=== PATIENT | female | born 1940 | race Caucasian/White ===

== ENCOUNTER 2021-10-05 11:25 | Outpatient (CLI) | payer MEDICARE, OTHER, SELFPAY ==
[2021-10-05 17:53] LABS: Cholesterol* 147 mg/dL (90-199)
[2021-10-05 17:54] LABS: HDL Cholesterol* 25 mg/dL (>=50); LDL Cholesterol Calculated 81 mg/dL (<100); Triglycerides* 205 mg/dL (40-149)
== END 2021-10-05 11:26 | disposition home or self-care (01) ==
LOC: LONREF 11:27
PROVIDERS: PCP Family Medicine; Visit Provider Family Medicine
DX: E78.5 Hyperlipidemia, unspecified (principal); E11.9 Type 2 diabetes mellitus without complications
CPT/HCPCS: 80061

== ENCOUNTER 2022-01-18 14:55 | Outpatient (CLI) | payer MEDICARE, OTHER, SELFPAY ==
[2022-01-18 19:28] LABS: C.Difficile Negative (Negative); CDIFFEPI 027 PRESUMPTIVE NEGATIVE (Negative)
== END 2022-01-18 14:56 | disposition home or self-care (01) ==
LOC: LONREF 14:55
PROVIDERS: PCP Family Medicine; Visit Provider Family Medicine
DX: R19.7 Diarrhea, unspecified (principal)
CPT/HCPCS: 87045; 87046; 87427; 87493

== ENCOUNTER 2022-03-31 13:25 | Outpatient (CLI) | payer MEDICARE, OTHER, SELFPAY ==
--- NOTE | 2022-03-31 14:50 | W.ANESCHARGE ---
Anesthesia Charges Start Date/Time Anesthesia Start Date: 03/31/22 Anesthesia Start Time: 14:15 Stop Date/Time Anesthesia Stop Date: 03/31/22 Anesthesia Stop Time: 14:43 Summary Emergency: No Extremes of Age: Over 70-CPT 56039
== END 2022-03-31 13:26 | disposition home or self-care (01) ==
LOC: OP CLINIC 13:28
PROVIDERS: PCP Family Medicine; Visit Provider Internal Medicine
DX: Z12.11 Encounter for screening for malignant neoplasm of colon (principal); K63.5 Polyp of colon; K57.30 Diverticulosis of large intestine without perforation or abscess without bleeding; Z80.0 Family history of malignant neoplasm of digestive organs; Z86.010 Personal history of colon polyps
CPT/HCPCS: 00811; 45380; 88305; 99100; J2405

== ENCOUNTER 2022-05-16 15:09 | Outpatient (CLI) | payer MEDICARE, OTHER, SELFPAY ==
[2022-05-16 18:08] LABS: Chloride* 106 mmol/L (96-114); Sodium* 141 mmol/L (135-149)
[2022-05-16 18:11] LABS: Carbon Dioxide* 30 mmol/L (20-32); Creatinine* 0.7 mg/dL (0.5-1.5); Estimated Glomerular Filt Rate 86 ml/min
[2022-05-16 18:12] LABS: Blood Urea Nitrogen* 20 mg/dL (7-30); Calcium* 9.8 mg/dL (8.4-10.6); Glucose* 124 mg/dL (60-115)
== END 2022-05-16 15:10 | disposition home or self-care (01) ==
LOC: LONREF 15:09
PROVIDERS: PCP Family Medicine; Visit Provider Family Medicine
DX: Z01.818 Encounter for other preprocedural examination (principal)
CPT/HCPCS: 80048

== ENCOUNTER 2022-09-13 14:55 | Outpatient (CLI) | payer MEDICARE, OTHER, SELFPAY | END 2022-09-13 14:56 | disposition home or self-care (01) | LOC: LONREF 14:57 | PROVIDERS: PCP Family Medicine; Visit Provider Family Medicine | DX: Z01.818 Encounter for other preprocedural examination (principal) | CPT/HCPCS: 80048 ==

== ENCOUNTER 2022-12-13 11:28 | Outpatient (CLI) | payer MEDICARE, OTHER, SELFPAY | END 2022-12-13 11:29 | disposition home or self-care (01) | LOC: LONREF 11:31 | PROVIDERS: PCP Family Medicine; Visit Provider Family Medicine | DX: E78.5 Hyperlipidemia, unspecified (principal); I10 Essential (primary) hypertension; E11.9 Type 2 diabetes mellitus without complications | CPT/HCPCS: 80061 ==

== ENCOUNTER 2022-12-20 13:40 | Outpatient (CLI) | payer MEDICARE, OTHER, SELFPAY ==
--- NOTE | 2022-12-20 14:00 | CRLHL7_ITS ---
For Patients: As a result of the Century Cures Act, medical imaging exams and procedure reports are released immediately into your electronic medical record. You may view this report before your referring provider. If you have questions, please contact your health care provider. CLINICAL HISTORY: Multinodular goiter. Comparison 08/18/2020 TECHNIQUE: Hay-scale and color Doppler images were acquired of the thyroid gland. FINDINGS: The right lobe measures 5.2 by 1.6 x 2.1 and the left lobe measures 4.8 x 1.6 x 1.7 in size. Benign spongiform nodules. No suspicious nodules are seen. IMPRESSION: Benign spongiform nodules without suspicious nodules visualized. Dictated by Tori Lynch MD @ 12/23/2022 11:06:07 AM (Electronically Signed)
== END 2022-12-20 13:41 | disposition home or self-care (01) ==
LOC: US 13:41
PROVIDERS: PCP Family Medicine; Visit Provider Family Medicine
DX: E04.2 Nontoxic multinodular goiter (principal)
CPT/HCPCS: 76536

== ENCOUNTER 2023-07-31 14:00 | Outpatient (CLI) | payer MEDICARE, OTHER, SELFPAY ==
--- NOTE | 2023-07-31 14:00 | CRLHL7_ITS ---
For Patients: As a result of the Century Cures Act, medical imaging exams and procedure reports are released immediately into your electronic medical record. You may view this report before your referring provider. If you have questions, please contact your health care provider. RIGHT SCREENING MAMMOGRAM WITH COMPUTER-AIDED DETECTION AND TOMOSYNTHESIS TECHNIQUE: CC and MLO views were obtained. These mammographic images have been obtained using full-field digital technique. These mammographic images were interpreted with the benefit of computer-aided detection. Breast Tomosynthesis was used in this interpretation. COMPARISON FILM: 07/28/22, 06/22/20, 04/14/19. FINDINGS: There are scattered areas of fibroglandular density IMPRESSION: There is no radiographic evidence for malignancy. ASSESSMENT: BI-RADS Category 2: Benign RECOMMENDATION: Routine screening mammogram in 1 year. A lay language report of this examination will be provided to the patient. Paddy Durand M.D. Diagnostic Radiologist [email or web address] CHELLY/Dictated by: Paddy Durand MD @ 08/01/2023 8:50:00 AM (Electronically Signed)
== END 2023-07-31 14:01 | disposition home or self-care (01) ==
PROVIDERS: PCP Family Medicine; Visit Provider Family Medicine
DX: Z12.31 Encounter for screening mammogram for malignant neoplasm of breast (principal)
CPT/HCPCS: 77063; 77067

== ENCOUNTER 2023-12-19 14:35 | Outpatient (CLI) | payer MEDICARE, OTHER, SELFPAY | END 2023-12-19 14:36 | disposition home or self-care (01) | LOC: LKVREF 14:36 | PROVIDERS: PCP Family Medicine; Visit Provider Family Medicine | DX: E78.5 Hyperlipidemia, unspecified (principal); E78.00 Pure hypercholesterolemia, unspecified | CPT/HCPCS: 80061 ==

== ENCOUNTER 2024-06-18 14:11 | Outpatient (CLI) | payer MEDICARE, OTHER, SELFPAY | END 2024-06-18 14:12 | disposition home or self-care (01) | PROVIDERS: PCP Family Medicine; Visit Provider Family Medicine | DX: I10 Essential (primary) hypertension (principal); R53.83 Other fatigue; Z79.899 Other long term (current) drug therapy | CPT/HCPCS: 80048; 82607; 84443 ==

== ENCOUNTER 2024-07-17 12:53 | Outpatient (CLI) | payer MEDICARE, SELFPAY | END 2024-07-17 12:54 | disposition home or self-care (01) | LOC: AMB 07-18 09:34 | PROVIDERS: PCP Family Medicine; Visit Provider Family Medicine | DX: R19.5 Other fecal abnormalities (principal) | CPT/HCPCS: A0425; A0427 ==

== ENCOUNTER 2024-07-17 13:25 | Inpatient (IN) | payer MEDICARE, SELFPAY ==
[2024-07-17] VITALS (21 sets, daily range): BP systolic 83–128; BP diastolic 53–92; PULSE 82–94; RESP 16–18; TEMP 36–36.8; O2SAT 88–97; BMI 21.6; BMI 22.1
--- NOTE | 2024-07-17 13:33 | CRLHL7_ITS ---
For Patients: As a result of the 21st Century Cures Act, medical imaging exams and procedure reports are released immediately into your electronic medical record. You may view this report before your referring provider. If you have questions, please contact your health care provider. INDICATION: Melena. COMPARISON: 02/14/2021 TECHNIQUE: CT angiogram abdomen and pelvis without and with contrast, GI bleed protocol to include pre-contrast, arterial phase (CT angiography), and portal venous phase imaging. Multiplanar axial, coronal, and sagittal reformats are included. MIP images to improve detection of arterial pathology. Intravenous contrast: 95 ml Isovue 370. FINDINGS: Aorta and its branches: Well-timed contrast bolus. Aortic stent graft. There is some peripheral filling defect along the anterior margin of the mid to distal stent. Previous exams have been without IV contrast. There are bilateral renal artery stents that are both patent. There is good contrast filling of the iliac vessels. No acute aortic finding. The mesenteric vessels are patent without critical stenosis. The common, internal, and external iliac arteries are patent without critical stenosis. The common femoral arteries are patent without critical stenosis. GI: Normal. No dilated segments. No abnormal bowel wall thickening or unusual bowel enhancement. Distal colonic diverticulosis without a focally inflamed diverticuli or active diverticular bleeding seen. No active GI bleeding seen on CT. Moderate stool burden. The appendix is not discretely seen. Lung bases: Unchanged left lower lobe nodule. Liver: Diffuse hepatic steatosis. The liver is not enlarged or cirrhotic. Gallbladder and bile ducts: Cholecystectomy. Mildly dilated extrahepatic bile duct is similar to prior. Pancreas: Normal. Spleen: Normal. Adrenal glands: Normal. Kidneys: Normal overall renal size and position. There is some bilateral renal scarring and volume loss. There are several renal cysts. No solid renal mass. There are several right renal calculi. The largest measures 1.4 centimeters. There is a 3 millimeter left renal calculus. No ureteral calculi. No urinary tract dilation. Urinary bladder: Fairly filled. Pelvis: Streak artifact from the hip arthroplasties. Lymph nodes: No adenopathy. Peritoneum: No ascites. Abdominal wall: No bowel containing hernia. BONES: Right hip arthroplasty. Left hip osteoarthritis. Advanced disc and facet degeneration. Sacral Tarlov cysts. No focal bone lesions. Normal for age. IMPRESSION: 1. No active arterial GI bleeding. Widely patent mesenteric arteries and veins. 2. Aortic stent graft with some eccentric endothelial thickening or thrombus in the mid to distal portion. 3. Diffuse hepatic steatosis. Please note that all CT scans at this facility use dose modulation, iterative reconstruction, and/or weight-based dosing when appropriate to reduce radiation dose to as low as reasonably achievable. Dictated by Micheline Jain MD @ 07/17/2024 3:05:00 PM (Electronically Signed)
[2024-07-17 13:58] LABS: Lactate Sepsis w/Reflex* 2.3 mmol/L (0.5-1.9)
[2024-07-17 13:59] LABS: Basophils Percent Auto 0.2 % (0.0-3.0); Eosinophils Percent Auto 0.1 % (0.0-7.0); Hematocrit 35.3 % (33.0-51.0); Hemoglobin* 11.1 gm/dL (12.0-16.0); Immature Granulocytes Pct Auto 1.2 %; Lymphocytes Percent Auto 8.8 % (20-44); Mean Corpuscular HGB Conc 31 gm/dL (32-36); Mean Corpuscular Hemoglobin 30 pg (26-34); Mean Corpuscular Volume 94 fL (80-100); Monocytes Percent Auto 4.6 % (0.0-11.0); Neutrophils Percent Auto 85.1 % (42.0-72.0); Platelet Count* 320 K/uL (140-440); Red Blood Count 3.75 m/uL (4.00-5.20); White Blood Count* 13.81 K/uL (4.50-11.00)
[2024-07-17 14:04] LABS: Slide Review Reflex No
--- NOTE | 2024-07-17 14:06 | ED_ITS ---
HPI - General Adult General Date Seen: 07/17/24 Chief complaint: GI Bleed Stated complaint: GI bleed Time Seen by Provider: 07/17/24 13:28 History of Present Illness HPI narrative: Patient is an 84-year-old woman, not anticoagulated, who reports onset of black diarrhea at about 430 in the morning. She says she has had black stools about every hour since then. She has crampy lower abdominal pain which is worse right before she has a bowel movement. She has had some nausea has vomited once, this was not bloody. She has no prior history of GI bleeding. No chest pain or shortness of breath, no severe abdominal or back pain. She does have a history of AAA which was repaired about 10 or 11 years ago. Last imaging was about 5 years ago. She denies fevers or other systemic complaints. Has not been lightheaded or syncopal. Arrives via EMS. Related Data Home Medications ?Medication ?Instructions ?Recorded ?Confirmed aspirin 81 mg tablet,delayed 81 mg PO DAILY 10/05/21 06/18/24 release milk thistle seed extract PO .QDaily 10/05/21 06/18/24 multivitamin (Multiple Vitamins 1 tab PO QAM 10/05/21 06/18/24 tablet) omega-3 fatty acids [Fish Oil] PO .QDaily 10/05/21 06/18/24 vitamin B complex 1 tab PO QDAY 10/05/21 06/18/24 cholestyramine (with sugar) 4 gram ea PO BID 12/13/22 06/18/24 oral powder cholecalciferol (vitamin D3) 25 25 mcg PO QDAY 06/13/23 06/18/24 mcg (1,000 unit) capsule glucosamine 750 lb-mogqzoxwilt-coa tab PO BID 06/13/23 06/18/24 no1 625 mg-C 30 mg-frandy 1 mg tablet (Abtnblzupbr-Pcbpbrgbmjs-MLM) lutein 20 mg capsule 20 mg PO QDAY 06/13/23 06/18/24 calcium carbonate (Tums) 200 mg PO DAILY 06/18/24 06/18/24 melatonin 10 mg capsule 10 mg PO QHS 06/18/24 06/18/24 Previous Rx's ?Medication ?Instructions ?Recorded lancets 28 gauge (FreeStyle #100 ea 10/08/23 Lancets) atorvastatin 10 mg tablet 10 mg PO .Bedtime #90 tabs 12/19/23 azelastine 137 mcg (0.1 %) nasal 2 spray intranasal BID #30 mL 12/19/23 spray fenofibrate micronized 134 mg 134 mg PO DAILY #90 caps 12/19/23 capsule losartan 50 mg tablet 50 mg PO DAILY #90 tabs 12/19/23 metformin 500 mg tablet,extended 1,000 mg (2 x 500 mg) PO BID #360 12/19/23 release 24 hr tabs blood sugar diagnostic #100 ea 12/31/23 blood-glucose meter (Contour Next #1 ea 12/31/23 Glucose Meter kit) lancets (Accu-Chek Softclix #100 ea 01/01/24 Lancets) Allergies Allergy/AdvReac Type Severity Reaction Status Date / Time chlorthalidone Allergy Verified 07/17/24 13:38 lisinopril AdvReac Unknown Cough Verified 07/17/24 13:38 Butter Allergy Uncoded 06/18/24 13:53 Review of Systems Status of ROS: Reports: 10 or more systems reviewed and unremarkable except as noted in History and below [facility] Medical History Tobacco abuse ?Z72.0 - Tobacco use (ICD-10) Surgical History Status post nasal surgery ?Z98.890 - Other specified postprocedural states (ICD-10) Status post mastectomy ?Z90.10 - Acquired absence of unspecified breast and nipple (ICD-10) Status post cholecystectomy ?Z90.49 - Acquired absence of other specified parts of digestive tract (ICD- 10) Status post abdominal aortic aneurysm repair (12/11/14) ?Z98.890 - Other specified postprocedural states (ICD-10) ?Z86.79 - Personal history of other diseases of the circulatory system (ICD- 10) History of total hip replacement ?Z96.649 - Presence of unspecified artificial hip joint (ICD-10) History of tonsillectomy ?Z90.89 - Acquired absence of other organs (ICD-10) History of hysterectomy ?Z90.710 - Acquired absence of both cervix and uterus (ICD-10) History of breast implant ?Z98.82 - Breast implant status (ICD-10) History of bilateral oophorectomy ?Z90.722 - Acquired absence of ovaries, bilateral (ICD-10) History of appendectomy ?Z90.49 - Acquired absence of other specified parts of digestive tract (ICD- 10) Family History Other Colon cancer Social History What is your current living situation?: I presently have a place to live Problems where you live: no known problems In the past 12 months, utilities in danger of being shut off: no In past 12 months, lack of transportation kept you from medical appts, meetings, work, or getting things needed for daily living: no In the past 12 mos, have been you worried that your food would run out before you had money to buy more?: never true In the past 12 mos, the food you bought just didn't last and you didn't have mo ashleigh to buy more?: never true Smoking Status: Never smoker How often does anyone, including family, friends and others, physically hurt you : never How often does anyone, including family, friends and others, insult or talk down to you: never How often does anyone, including family, friends and others, threaten you with harm: never How often does anyone, including family, friends and others, scream or curse at you: never Exam Narrative: Exam Narrative: Vital signs reviewed In general, alert, nontoxic elderly woman, she looks comfortable. Head: Normocephalic, atraumatic. Eyes: Sclera clear. Pupils equal and reactive. ENT: Mucous membranes moist. Neck: Supple without adenopathy. Heart: Regular rate and rhythm without murmur. Lungs: Clear. No increased work of breathing, crackles or wheezes. Abdomen: Soft, nontender to palpation. Rectal deferred as patient was in hallway bed. Extremities: Well perfused, pulses intact. No significant edema. Neurologic: Alert, conversant. Speech fluent, face symmetric. Moves all extremities equally. Skin: Warm, dry well perfused. Affect: Normal. Const: Vital Signs, click to edit/add: Vital Signs - 24 hr 07/17/24 13:30 07/17/24 13:39 07/17/24 14:00 Temperature 96.8 F L Pulse Rate Pulse Rate [Pulse Oximeter] 89 Respiratory Rate 16 Blood Pressure Blood Pressure [Ri ght Upper Arm] 115/66 107/76 84/53 L Pulse Oximetry 96 Oxygen Delivery Me thod Room Air 07/17/24 14:30 07/17/24 15:00 07/17/24 16:42 Temperature Pulse Rate 89 Pulse Rate [Pulse Oximeter] Respiratory Rate Blood Pressure Blood Pressure [Ri ght Upper Arm] 102/61 91/73 Pulse Oximetry 94 Oxygen Delivery Me thod 07/17/24 16:45 07/17/24 17:00 07/17/24 17:15 Temperature Pulse Rate 94 86 83 Pulse Rate [Pulse Oximeter] Respiratory Rate Blood Pressure Blood Pressure [Ri ght Upper Arm] Pulse Oximetry 94 96 96 Oxygen Delivery Me thod 07/17/24 17:30 07/17/24 17:33 07/17/24 17:42 Temperature Pulse Rate 83 87 87 Pulse Rate [Pulse Oximeter] Respiratory Rate Blood Pressure 83/57 L 124/92 H Blood Pressure [Ri ght Upper Arm] Pulse Oximetry 88 97 97 Oxygen Delivery Me thod 07/17/24 17:45 07/17/24 18:00 07/17/24 18:01 Temperature Pulse Rate 89 92 85 Pulse Rate [Pulse Oximeter] Respiratory Rate Blood Pressure 118/75 Blood Pressure [Ri ght Upper Arm] Pulse Oximetry 92 93 Oxygen Delivery Me thod 07/17/24 18:02 07/17/24 18:15 Temperature Pulse Rate 84 91 Pulse Rate [Pulse Oximeter] Respiratory Rate Blood Pressure Blood Pressure [Ri ght Upper Arm] Pulse Oximetry 96 95 Oxygen Delivery Me thod Course Course ED Course: Patient arrives with an IV in place, she is not tachycardic at this time, blood pressure 107/76. Abdominal exam is benign. Will order CT scan to look for any kind of active GI bleeding source as well as evaluate her AAA repair. Routine labs, type and screen ordered. Will try to get stool for fecal occult blood as well, she is reporting black stools that are very different than anything she has had previously, presumed melena at this time. Given Protonix, normal saline, Zofran. She has not had further bowel movements while here. I was ultimately able to do a rectal exam although it took quite some time before we had an open bed. This does appear melanotic. Her hemoglobin was 11, this is down 3 g from her last hemoglobin which was a month ago. Her BUN is elevated at 42. Lactate is elevated at 2.3. White blood cell count is elevated at 13.8. Other labs are unremarkable. I did a type and screen. I am going to repeat hemoglobin, right now no indication for transfusion. Blood pressures have remained around 100. CT scan read by Radiology as showing no active bleeding. She has some thrombus or and the ileal thickening noted in the aorta, I discussed this with the radiologist who notes that this is chronic though it is new since her most recent scan several years ago. She had a 2nd 500 mL of normal saline here, blood pressures are improved to the 1 teens. Her hemoglobin did drop to 9.2. She has not had any further stools. I did review her CT findings with the on-call vascular surgeon at [facility]. He recommends outpatient follow-up with vascular. Patient is admitted to our hospitalist service for observation serial hemoglobins, consideration of endoscopy. Vital Signs Vital signs: Initial Vital Signs Blood Pressure 115/66 07/17/24 13:30 Blood Pressure Mean 82 07/17/24 13:30 Blood Pressure Position Semi-Fowlers 07/17/24 13:30 Vital Signs Blood Pressure 115/66 07/17/24 13:30 Temperature 96.8 F L 07/17/24 13:39 Pulse Rate 91 07/17/24 18:15 Respiratory Rate 16 07/17/24 13:39 Blood Pressure 118/75 07/17/24 18:01 Pulse Oximetry 95 07/17/24 18:15 Oxygen Delivery Method Room Air 07/17/24 13:39 Medications Administered Medications: Discontinued Medications Generic Name Dose Route Start Last Admin Trade Name Freq PRN Reason Stop Dose Admin Sodium Chloride 500 mls @ 500 mls/hr 07/17/24 13:33 07/17/24 16:00 0.9 % Sodium Chloride 500 Ml IV 07/17/24 14:32 Infused .Q1H ONE Infusion Sodium Chloride 500 mls @ 500 mls/hr 07/17/24 16:19 07/17/24 17:30 0.9 % Sodium Chloride 500 Ml IV 07/17/24 17:18 Infused .Q1H ONE Infusion Ondansetron HCl 4 mg 07/17/24 13:33 07/17/24 14:55 Ondansetron 2 Mg/Ml Inj IVP 07/17/24 13:34 Not Given ONCE ONE Pantoprazole Sodium 40 mg 07/17/24 13:33 07/17/24 14:50 Pantoprazole Sodium 40 Mg Inj IVP 07/17/24 13:34 40 mg ONCE ONE Administration Medical Decision Making Lab Data Labs: Lab Results 07/17/24 07/17/24 07/17/24 Range/Units 13:50 16:00 17:05 WBC 13.81 H (4.50-11.00) K/uL RBC 3.75 L (4.00-5.20) m/uL Hgb 11.1 L 9.2 L (12.0-16.0) gm/dL Hct 35.3 (33.0-51.0) % MCV 94 (80-100) fL MCH 30 (26-34) pg MCHC 31 L (32-36) gm/dL RDW Coeff of Olga 14.0 (11.5-15.5) % Plt Count 320 (140-440) K/uL Neut % (Auto) 85.1 H (42.0-72.0) % Lymph % (Auto) 8.8 L (20-44) % [place] % (Auto) 4.6 (0.0-11.0) % Eos % (Auto) 0.1 (0.0-7.0) % Baso % (Auto) 0.2 (0.0-3.0) % Neut # (Auto) 11.80 H (1.7-7.0) K/uL Lymph # (Auto) 1.20 (0.90-2.90) K/uL [place] # (Auto) 0.60 (0.00-0.90) K/UL Eos # (Auto) 0.00 (0.00-0.50) K/uL Baso # (Auto) 0.00 (0.00-0.30) K/uL Abs Immat Gran (auto) 0.20 (0.00-0.30) K/uL Imm/Tot Granulo (auto) 1.2 % INR 1.02 (0.91-1.10) APTT 22 L (23-33) Seconds Sodium 142 (135-149) mmol/L Potassium 4.8 (3.6-5.1) mmol/L Chloride 110 (96-114) mmol/L Carbon Dioxide 24 (20-32) mmol/L Anion Gap 8 (7-15) mEq/L BUN 42 H (7-30) mg/dL Creatinine 0.8 (0.5-1.5) mg/dL Estimated Creat Clear 36.16 Estimated GFR 73 ml/min Glucose 157 H (60-115) mg/dL Lactate 2.3 H 1.9 (0.5-1.9) mmol/L Calcium 9.9 (8.4-10.6) mg/dL Total Bilirubin 0.4 (0.1-1.5) mg/dL Direct Bilirubin 0.2 (0.0-0.5) mg/dL AST 28 (12-35) U/L ALT 23 (4-35) U/L Alkaline Phosphatase 40 (40-150) U/L C-Reactive Protein < 0.5 L (0.5-1.0) mg/dL Total Protein 6.2 (6.0-8.3) g/dL Albumin 3.9 (3.3-5.0) g/dL Stool Occult Blood Positive A (Negative) Blood Type A Positive Antibody Screen NEGATIVE Discharge Plan Discharge Clinical Impression: Acute upper gastrointestinal bleeding
[2024-07-17 14:14] LABS: Albumin* 3.9 g/dL (3.3-5.0); Chloride* 110 mmol/L (96-114); Potassium* 4.8 mmol/L (3.6-5.1); Sodium* 142 mmol/L (135-149)
[2024-07-17 14:17] LABS: Alanine Aminotransferase* 23 U/L (4-35); Alkaline Phosphatase* 40 U/L (40-150); Anion Gap 8 mEq/L (7-15); Aspartate Amino Transferase* 28 U/L (12-35); Bilirubin Direct* 0.2 mg/dL (0.0-0.5); Bilirubin Total* 0.4 mg/dL (0.1-1.5); Blood Urea Nitrogen* 42 mg/dL (7-30); Calcium* 9.9 mg/dL (8.4-10.6); Carbon Dioxide* 24 mmol/L (20-32); Creatinine* 0.8 mg/dL (0.5-1.5); Est. Creatinine Clearance* 36.16; Estimated Glomerular Filt Rate 73 ml/min; Glucose* 157 mg/dL (60-115); Total Protein* 6.2 g/dL (6.0-8.3)
[2024-07-17 14:27] LABS: INR 1.02 (0.91-1.10); Partial Thromboplastin Time* 22 Seconds (23-33); Prothrombin Time 14.3 Seconds
[2024-07-17 14:35] LABS: C Reactive Protein* < 0.5 mg/dL (0.5-1.0)
[2024-07-17] MEDS: 0.9 % SODIUM CHLORIDE 500 ML 500 ML IV ×2 (14:35→16:33)
[2024-07-17] MEDS: PANTOPRAZOLE SODIUM 40 MG INJ IVP (14:50)
[2024-07-17 17:09] LABS: Lactate Sepsis 2 Hour 1.9 mmol/L (0.5-1.9)
[2024-07-17 17:12] LABS: Hemoglobin* 9.2 gm/dL (12.0-16.0)
--- OUTSIDE RECORDS SUMMARY | 2024-07-17 17:40 | XMS_ITS | Patient Health Record ---
Author Organization [facility] Billing Info Address [address] [place] [address] [place] [address] Care Team Providers Care Documentation Supervisor Name Role Phone NU FRAIRE, NATHAN Primary Care Provider Unavaila ble Reason For Referral No Information Medications Medication SIG (Take, Route, Frequency, Duration) Notes Start Date End Date Status Atorvastatin Calcium 10 MG 1 tablet Oral ly Once a day Active Fenofibrate 160 MG 1 tablet with a meal Orally Once a day Active Lutein Active Lisinopril 5 MG 1 tablet Orally Once a day Active Vitamin D Active Metformin HCl 500 MG 1 tablet with meals Orally Twice a day Active Vitamin B Complex Ac tive Fish Oil Active Multivitamins Active Pantoprazole Sodium 40 mg 1 tablet Orally BID Active Glucosamine Active Milk Thistle Active Social History Tobacco Use: Social History Observation Description Date Details (start date - stop date) Former Smoker NA - NA Tobacco Status: Question Answer Notes Patient is a former smoker Problems Problem Type SNOMED Code ICD Code Onset Dates Problem Status W/U Status Risk Notes Problem 88370222 Essential hypertension (401.9) Active confirmed Problem 540881725 AAA (abdominal aortic aneurysm) (441.4) Active confirmed Problem 6822788301694 History of tobac co use (V15.82) Active confirmed Problem 62788657 Type II diabetes mellitus (250.00) Active confirmed Problem 02641435 Arteriosclerosis of coronary artery (414.00) Active confirmed Plan Of Treatment No Information Insurance Providers Payer Name Payer Address Payer Phone Subscriber Number Group Number Insured Name Patient Relationship to Insured Coverage Start Date Coverage End Date MEDICARE [place] PART B [address] [place], [place] [id number] Sangeeta Dsouza Self - patient is the insured 2 2 [employer] MCR SUPPLEMENT [address] [address] [place], [place] [id number] Plan F Sangeeta Dsouza Self - patient is the insured 2 2 Medical (General) History Medical History History ICD Code Diabetes AAA (not repaired) Hypertension Hyperlipidemia Breast cancer Uterine cancer Arthritis Surgical History Surgery Date(Month/Year) 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
--- OUTSIDE RECORDS SUMMARY | 2024-07-17 17:40 | XMS_ITS | Clinical Summary ---
Author Organization [facility] Address [address] [place] [address] Care Team Providers Care Stripper And Taper Name Role Phone Melquiades Azul MD Unavailable [phone] Micah Khanna MD Primary Care Provider [phone] Allergies Active Allergy Reactions Criticality Noted Date Comments Butter Rum Flavoring Agent (Non-Screening) 03/31/2022 Chlorthalidone 03/31/2022 Lisinopril Cough 12/28/2015 Medications atorvastatin (LIPITOR) 10 MG tablet Take 10 mg by mouth daily Active Fenofibrate 134 MG CAPS Take by mouth daily Active losartan (COZAAR) 50 MG tablet Take 50 mg by mouth daily Active aspirin (ASA) 81 MG chewable tablet Take 81 mg by mouth daily Active Lutein 20 MG CAPS Take 20 mg by mouth Active azelastine-fluti casone (DYMISTA) 137-50 MCG/ACT nasal spray twice a day 10/05/2021 Activ e METFORMIN & DIET MANAGE PROD PO twice a day 10/05/2021 Ac tive Milk Thistle 175 MG CAPS .QDaily 10/05/2021 Active blood glucose monitoring (FREESTYLE) lancets USE TO TEST DAILY 10/16/2022 Active FREESTYLE TEST STRIPS test strip USE TO TEST ONE TIME DAILY 10/16/2022 Active cholestyramine light (PREVALITE) 4 GM powder 10/23/2022 Active calcium carbonate (TUMS SMOOTHIES) 750 MG CHEW Take by mouth every 3 hours 04/07/2022 Active metFORMIN (GLUCOPHAGE XR) 500 MG 24 hr tablet Take 1,000 mg by mouth 2 times daily (with meals). 11/09/2023 Active vibegron (GEMTESA) 75 MG TABS tabletIndication s:Urinary urgency Take 1 tablet (75 mg) by mouth daily. 90 tablet 3 12/11/2023 Active Active Problems Problem Noted Date Diagnosed Date Adenomatous colon polyp 12/05/2022 Calculus of kidney 12/05/2022 GERD (gastroesophageal reflux disease) Hiatal hernia 12/05/2022 Reactive gastropathy 12/05/2022 Diarrhea 12/05/2022 Essential tremor 12/05/2022 Hyperlipidemia 12/05/2022 Hypertension 12/05/2022 Malignant neoplasm of breast 12/05/2022 Malignant neoplasm of uterus 12/05/2022 Multinodular goiter 12/05/2022 Osteoarthrosis 12/05/2022 Osteopenia 12/05/2022 Seasonal allergic rhinitis 12/05/2022 Steatosis of liver 12/05/2022 Type 2 diabetes mellitus 12/05/2022 Lymphocytic colitis 05/19/2022 Left ureteral stone 03/31/2021 Overview (03/31/2021): Added automatically from request for surgery [id number] Urinary tract infection 02/14/2021 Gastroesophageal reflux disease with esophagitis 03/17/2019 Diaphragmatic hernia 03/13/2019 Disorder of stomach 03/13/2019 Polyp of duodenum 03/13/2019 Abdominal aortic aneurysm (AAA) without rupture 01/04/2016 Immunizations Immunization Administration Dates Next Due Flu 65+ (Fluad) 12/08/2018 Influenza (High Dose) Trival ent,PF (Fluzone) 12/20/2017,11/30/2016,12/04/2015,2014 Influenza Vaccine 65+ (Fluzone HD) 01/04/2022,,12/15/2019 Influenza Vaccine >6 months,quad, PF 08/2018,12/20/2017,11/30/2016,2015,12/02/2014 Pneumo Conj 13-V (2010&after) 12/11/2014 Pneumococcal 23 valent 08/17/2005 TDAP (Adacel,Boostrix) 02/04/2020 Zoster vaccine, live 08/17/2012 Family History Medical History Relation Comments Lung Cancer Father Colon Cancer Son Relation Status Comments Father Mother Son Social History Tobacco Use Types Packs/Day Years Used Date Smoking Tobacco: Former Smokeless Tobacco: Never Tobacco Cessation:Counseling Given: Not Answered Alcohol Use Standard Drinks/Week Comments Not Currently 0 (1 standard drink = 0.6 oz pur e alcohol) PHQ-2 Answer Date Recorded PHQ-2 Score 0 01/23/2022 Adolescent Education Answer Date Record ed Getting School Help Needed Not on file 11/29 Comments Unknown Sex and Gender Information Value Date Recorded Sex Assigned at Not on file 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 Gender Identity Not on file Sexual Orientation Not on file Last Filed Vital Signs Vital Sign Reading Time Taken Comments Blood Pressure 128/81 12/11/2023 10:11 AM CDT Pulse 88 12/11/2023 10:11 AM CDT Temperature 37.1 C (98.7 F) 05/19/2023 7:44 PM CDT Respiratory Rate 18 05/19/2023 7:44 PM CDT Oxygen Saturation 100% 12/11/2023 10:11 AM CDT Inhaled Oxygen Concentration - - Weight 56.7 kg (125 lb) 12/11/2023 10:11 AM CDT pr patient Height 162.6 cm (5' 4) 12/11/2023 10:11 AM CDT pr patient Body Mass Index 21.46 12/11/2023 10:11 AM CDT Plan of Treatment Health Maintenance Due Date Last Done Comments A1C 1940 ANNUAL REVIEW OF HM ORDERS 1940 DEXA 1940 DIABETIC FOOT EXAM 1940 EYE EXAM 1940 LIPID 1940 MICROALBUMIN 1940 FALL RISK ASSESSMENT 2005 MEDICARE ANNUAL WELLNESS VISIT 2005 RSV VACCINE (1 - 1-dose 75+ series) 2015 PHQ-2 (once per calendar year) 2024 01/23/2022 BMP 05/18/2024 05/19/2023, 09/13/2021 COVID-19 Vaccine ( season) 2024 11/30/2023, 12/12/2021, 06/20/2021, Additional history exists INFLUENZA VACCINE (Season Ended) 2024 12/08/2022, 01/04/2022, 12/24/2020, Additional history exists ADVANCE CARE PLANNING 05/30/2027 05/29/2022 DTAP/TDAP/TD IMMUNIZATION (2 - Td or Tdap) 02/03/2030 02/04/2020 Pneumococcal Vaccine: 50+ Years Completed 12/11/2014, 08/17/2005 ZOSTER IMMUNIZATION Completed 05/18/2023, 01/19/2023, 08/17/2012 HPV IMMUNIZATION Aged Out No longer e ligible based on patient's age to complete this topic MENINGITIS IMMUNIZATION Aged Out No l onger eligible based on patient's age to complete this topic Medical Devices Implanted Type Area Rocket Engine Tester Device Identifier Shelf Expiration Date Model / Serial / Lot Stent Ureteral Percuflex Plus [id number] - [id number] Implanted:Qty: 1 on 04/07/2021 by Gregory Canales MD at [facility] Stent Left: Abdomen [employer] [id number] 12/13/2023 [id number] / / [id number] Procedures Procedure Name Priority Date/Time Associated Diagnosis Comments COMPREHENSIVE METABOLIC PANEL STAT 05/19/2023 7:49 PM CDT from Last 3 Months or Most Recently Relevant to Health Maintenance Results * (ABNORMAL) Comprehensive metabolic panel (05/19/2023 7:49 PM CDT) [facility] Sodium 139 135 - 145 mmol/L 05/19/2023 8:28 PM CDT LABORATORY Comment:Reference intervals for this test were updated on 11/28/2022 to more accurately reflect our healthy population. There may be differences in the flagging of prior results with similar values performed with this method. Interpretation of those prior results can be made in the context of the updated reference intervals. Potassium 4.3 3.4 - 5.3 mmol/L 05/19/2023 8:28 PM CDT LABORATORY Carbon Dioxide (CO2) 23 22 - 29 mmol/L 05/19/2023 8:28 PM CDT LABORATORY Anion Gap 12 7 - 15 mmol/L 05/19/2023 8:28 PM [facility] Urea Nitrogen 15.7 8.0 - 23.0 mg/dL 05/19/2023 8:[facility] Creatinine 0.77 0.51 - 0.95 mg/dL 05/19/2023 8:28 PM T LABORATORY GFR Estimate 76 >60 mL/min/1. 73m2 05/19/2023 8:28 PM [facility] Calcium 10.2 8.8 - 10.2 mg/dL 05/19/2023 8:28 PM [facility] Chloride 104 98 - 107 mmol/L 05/19/2023 8:28 PM [facility] Glucose 161(H) 70 - 99 mg/dL 05/19/2023 8:28 PM [facility] Alkaline Phosphatase 58 40 - 150 U/L 05/19/2023 8:28 PM [facility] Comment:Reference intervals for this test were updated on 01/16/2023 to more accurately reflect our healthy population. There may be differences in the flagging of prior results with similar values performed with this method. Interpretation of those prior results can be made in the context of the updated reference intervals. AST 19 0 - 45 U/L 05/19/2023 8:28 PM [facility] Comment:Reference intervals for this test were updated on 08/14/2022 to more accurately reflect our healthy population. There may be differences in the flagging of prior results with similar values performed with this method. Interpretation of those prior results can be made in the context of the updated reference intervals. ALT 18 0 - 50 U/L 05/19/2023 8:28 PM [facility] Comment:Reference intervals for this test were updated on 08/14/2022 to more accurately reflect our healthy population. There may be differences in the flagging of prior results with similar values performed with this method. Interpretation of those prior results can be made in the context of the updated reference intervals. Protein Total 7.3 6.4 - 8.3 g/dL 05/19/2023 8:28 PM [facility] Albumin 4.4 3.5 - 5.2 g/dL 05/19/2023 8:28 PM T LABORATORY Bilirubin Total 0.4 <=1.2 mg/dL 05/19/2023 8:28 PM [facility] Blood BLOOD SPECIMEN / Unknown Venipuncture / Unknown 05/19/2023 7:49 PM CDT 05/19/2023 8:08 PM CDT Meme Goodson MD LAB - BLOOD ORDERABLES Final Result LABORATORY [facility] [address] [place] [address], [facility] from Last 3 Months or Most Recently Relevant to Health Maintenance Insurance MEDICARE [facility] MEDICARE [employer] SENIOR SUPPLEMENT Advance Directives For more information, please contact: [phone] Documents on File Type Date Recorded Patient Client Executive Expl anation Advance Directives and Living Will 05/29/2022 Health Care Directiv e 03-20-2017 Healthcare Agents on File Name Relationship Healthcare Agent Relationship Communication Jayy Dsouza Spouse Health Care Agent [email or web address] Frances Higgins Daughter First Alternate Health Care Agent Care Teams Stripper And Taper Relationship Specialty Start Date End Date Micah Khanna MD [address] [place], [place] [id number] PCP - General Family Medicine 09/18/21 Melquiades Azul MD [address] [place] [address] Assigned Surgical Provider 04/03/21
--- OUTSIDE RECORDS SUMMARY | 2024-07-17 17:40 | XMS_ITS | Encounter Summary ---
Author Organization [facility] Address [address] [place] [address]. [place] [address] Care Team Providers Care Manufacturing Baker Name Role Phone Melquiades Azul MD Unavailable [phone] Micah Khanna MD Primary Care Provider [phone] Encounter Details Date Type Department Care Team (Late st Contact Info) Description 11[place]21/2023 [facility] [place] [facility] [place] [address] [facility] [address] [place] [address] Jannie Cruz Social History Tobacco Use Types Packs/Day Years Used Date Smoking Tobacco: Former Smokeless Tobacco: Never Alcohol Use Standard Drinks/Week Comments Not Currently 0 (1 standard drink = 0.6 oz pur e alcohol) PHQ-2 Answer Date Recorded PHQ-2 Score 0 01/23/2022 Adolescent Education Answer Date Record ed Getting School Help Needed Not on file 11/29 Comments Unknown Sex and Gender Information Value Date Recorded Sex Assigned at Not on file 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
--- OUTSIDE RECORDS SUMMARY | 2024-07-17 17:40 | XMS_ITS | Clinical Summary ---
Author Organization [facility] Address [address] [place] [address] Care Team Providers Care Grape Pruner Name Role Phone Leidy Field MD Primary Care Provider Julia lable Allergies Active Allergy Reactions Criticality Noted Date Comments Lisinopril Cough 12/28/2015 Medications losartan (COZAAR) 50 mg tablet Take 1 tablet by mouth once daily. 0 12/28/2015 Active fenofibrate 160 mg tablet Take 1 tablet by mouth once daily with a meal. 0 12/28/2015 Active atorvastatin (LIPITOR) 10 mg tablet Take 1 tablet by mouth once daily. 0 12/28/2015 Active pantoprazole (PROTONIX) 40 mg delayed-release tablet Take 1 tablet by mouth once daily. 0 12/28/2015 Active aspirin (ECOTRIN) 81 mg enteric coated tablet Take 1 tablet by mouth once daily with a meal. 0 12/28/2015 Active Azelastine 0.15 % (205.5 mcg) nasal spray Inhale in the nostril(s). 0 12/28/2015 Active multivitamin (MVI) tablet Take 1 tablet by mouth once daily. 0 01/04/2016 Active fish oil-omega-3 fatty acids (FISH OIL) 1,200-360 mg cap Take 1 capsule by mouth once daily. 0 01/04/2016 Active b complex vitamins (VITAMIN B COMPLEX) capsule Take 1 capsule by mouth once daily. 0 01/04/2016 Active ascorbic acid, vitamin C, (VITAMIN C) 250 mg tablet Take 1 tablet by mouth once daily. 01/04/2016 Active Milk Thistle 175 mg tablet Take 1 tablet by mouth once daily. 0 01/04/2016 Active cholecalciferol (VITAMIN D) 1,000 unit capsule Take 1 capsule by mouth once daily. 0 01/04/2016 Active metFORMIN (GLUCOPHAGE) 500 mg tablet Patient reports taking one tablet (500MG) in the morning, and two tablets (1,000MG) at night. 0 01/28/2019 Active Active Problems Problem Noted Date Diagnosed Date Abdominal aortic aneurysm (AAA) without rupture 01/04/2016 Type 2 diabetes mellitus Social History Tobacco Use Types Packs/Day Years Used Date Smoking Tobacco: Former Cigarettes Smokeless Tobacco: Never Alcohol Use Standard Drinks/Week Comments No 0 (1 standard drink = 0.6 oz pur e alcohol) Comments Unknown Sex and Gender Information Value Date Recorded Sex Assigned at Not on file Legal Sex Female 3:20 PM CDT Gender Identity Not on file Sexual Orientation Not on file Obstetrics History Last Filed Vital Signs Vital Sign Reading Time Taken Comments Blood Pressure 122/68 01/28/2019 2:12 PM PRINTING PRESS OPERATOR Pulse 94 01/28/2019 2:12 PM PRINTING PRESS OPERATOR Temperature - - Respiratory Rate 16 01/28/2019 2:12 PM PRINTING PRESS OPERATOR Oxygen Saturation 94% 01/28/2019 2:1 2 PM PRINTING PRESS OPERATOR on room air Inhaled Oxygen Concentration - - Weight 66.3 kg (146 lb 3.2 oz) 01/29/20 19 2:12 PM PRINTING PRESS OPERATOR with shoes Height 162.6 cm (5' 4) 01/28/2019 2:12 PM PRINTING PRESS OPERATOR Body Mass Index 25.1 01/28/2019 2:12 PM PRINTING PRESS OPERATOR Plan of Treatment Health Maintenance Due Date Last Done Comments Tdap 1951 Depression screening for age 12+ 1952 Tetanus booster 1960 Pneumococcal series for age 50+ (1 of 1 - PCV) 1990 Zoster (shingles) series for age 50+ (1 of 2) 1990 DEXA/DXA scan for age 65+ 2005 Medicare Wellness for age 65+ 2005 RSV vaccine for adults or pr egnancy (1 - 1-dose 75+ series) 2015 BMI (ht and wt on same day) for age 18+ 01/29/2020 01/28/2019, 01/23/2017, 01/04/2016 COVID-19 vaccine series (2023- season) 2023 Influenza Vaccine (Season Ended) [address] [place] [place] [address] MEDICARE PART A HB ONLY MEDICARE PART B HB ONLY MEDICARE PB ONLY [facility] HOSP INDEMNITY HB ONLY Care Teams Grape Pruner Relationship Specialty Start Date End Date Leidy Field MD PCP - General Family Practice 11/25/15
--- OUTSIDE RECORDS SUMMARY | 2024-07-17 17:40 | XMS_ITS | Encounter Summary ---
Author Organization [facility] Address [address] [place] [address] Care Team Providers Care Health Information Specialist Name Role Phone Melquiades Azul MD Unavailable [phone] No Ref-Primary, Physician Primary Care Provider Micah Khanna MD Primary Care Provider [phone] Reason for Visit * Reason Onset Date Comments Nutrition Counseling 09/15/2021 Encounter Details Date Type Department Care Team (Late st Contact Info) Description 09/15/2021 Telephone [facility] [address] [address] Melquiades Azul MD [address] [place] [address] Nutrition Counseling Social History Tobacco Use Types Packs/Day Years Used Date Smoking Tobacco: Former Smokeless Tobacco: Never PHQ-2 Answer Date Recorded PHQ-2 Score 0 01/23/2022 Adolescent Education Answer Date Record ed Getting School Help Needed Not on file 11/29 Comments Unknown Sex and Gender Information Value Date Recorded Sex Assigned at Not on file Legal Sex Female 4:00 AM POST ACUTE CARE REGISTERED NURSE Gender Identity Not on file Sexual Orientation Not on file COVID-19 Exposure Response Date Recorded In the last 10 days, have yo u been in contact with someone who was confirmed or suspected to have Coronavirus/COVID-19? No / Unsure 12/05/2022 12:38 PM CDT documented as of this encounter Miscellaneous Notes * Telephone Encounter - Colt Foster - 09/15/2021 2:14 PM CDT Nutrition Education Scheduling Outreach #1: Call to patient to schedule. Patient declined [facility] She says she was advised to see an RD at [facility] but she she only wants the focus to be on kidney health. She would like for provider to contact her to clarify which pickle pumper wasrecommended. Please call pt to advise. Colt Foster [facility] Diabetes and Nutrition Scheduling documented in this encounter Plan of Treatment Not on file documented as of this encounter Visit Diagnoses Not on filedocumented in this encounter Care Teams Health Information Specialist Relationship Specialty Start Date End Date No Ref-Primary, Physician PCP - General 05/20/21 09/17/21 Micah Khanna MD PCP - General Family Medicine 09/18/21 Melquiades Azul MD [address] [place] [address] Assigned Surgical Provider 04/03/21 documented as of this encounter
--- OUTSIDE RECORDS SUMMARY | 2024-07-17 17:40 | XMS_ITS | Encounter Summary ---
Author Organization [facility] Address [address] [place] [address]. 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 Patient is requesting alternate medication. Action Taken: Message routed to: Other: Urology Travel Screening: Not Applicable documented in this encounter Plan of Treatment Not on file documented as of this encounter Visit Diagnoses Not on filedocumented in this encounter Care Teams Machine Rope Maker Relationship Specialty Start Date End Date Micah Khanna MD [address] [place] [id number] PCP - General Family Medicine 09/18/21 Melquiades Azul MD [address] [place] [address] Assigned Surgical Provider 04/03/21 documented as of this encounter
[2024-07-17 18:29] LABS: Fecal Occult Blood* Positive (Negative)
--- NOTE | 2024-07-17 20:37 | PM.IMHP1 ---
Assessment and Plan Assessment and plan (1) Vascular graft thrombosis: Problem comment: CT abdomen and pelvis on 07/17/2024 shows old thrombosis in the distal portion of her AAA repair. Nonemergent outpatient vascular consultation recommended Status: Acute (2) Acute upper gastrointestinal bleeding: Problem comment: Melanotic stools and 5 g hemoglobin drop Status: Acute (3) Microscopic colitis: Problem comment: Diagnosed 2022 Status: Acute (4) Type 2 diabetes mellitus, controlled: Status: Acute Plan 84-year-old female admitted to the hospital with likely upper GI bleeding with melena. Hemoglobin has dropped 5 g. Admitted for ongoing monitoring of cardiovascular status and serial hemoglobins. Possibly bleeding from the duodenum. Did not have blood in her stomach when she had an emesis this morning. Previous duodenal polyp. EGD planned for tomorrow. PPI, serial hemoglobins and monitoring for ongoing bleeding in the meantime Total Time Spent Total Time Spent: Total time spent today is 80 minutes in reviewing outside records, coordination of care, discussing with patient and other providers ongoing management of GI bleeding Hospitalist- H&P: HPI History of Present Illness Date Seen: 07/17/24 Chief complaint: GI bleed Narrative: Sangeeta Dsouza is a 84 year old female admitted with onset of melanotic diarrhea starting about 4:00 a.m. this morning. She had recurrent episodes of black diarrhea about every hour and a half until she came to the emergency room between 10 and 11:00 a.m.. She had 1 emesis around 9:00 a.m.. She vomited up nonbloody and non coffee-ground stomach contents. She described the appearance of though stomach contents as looking like her dinner from last night. She takes aspirin 81 mg daily for cardiovascular prophylaxis. No previous history of VA or stroke. She does have a history of a AAA repair. Notably there is old clot in the distal part of her AAA repair. Vascular surgery recommends non emergent outpatient follow-up for this. CT abdomen and pelvis showed no sign of active bleeding. Review of Systems Narrative: Patient has no other concerns today she otherwise feels well. [facility] Medical History (Updated 07/17/24 @ 20:47 by Tigre Olvera MD) Polyp of duodenum (03/13/19) ?K31.7 - Polyp of stomach and duodenum (ICD-10) Lymphocytic colitis (05/19/22) ?K52.832 - Lymphocytic colitis (ICD-10) Left ureteral stone (03/31/21) ?N20.1 - Calculus of ureter (ICD-10) History of tobacco use ?Z87.891 - Personal history of nicotine dependence (ICD-10) Essential hypertension ?I10 - Essential (primary) hypertension (ICD-10) Diarrhea (12/05/22) ?R19.7 - Diarrhea, unspecified (ICD-10) Diaphragmatic hernia (03/13/19) ?K44.9 - Diaphragmatic hernia without obstruction or gangrene (ICD-10) Arteriosclerosis of coronary artery ?I25.10 - Atherosclerotic heart disease of [place] coronary artery without angina pectoris (ICD-10) AAA (abdominal aortic aneurysm) ?I71.40 - Abdominal aortic aneurysm, without rupture, unspecified (ICD-10) Urinary tract infection (02/14/21) ?N39.0 - Urinary tract infection, site not specified (ICD-10) Type 2 diabetes mellitus (12/05/22) ?E11.9 - Type 2 diabetes mellitus without complications (ICD-10) Steatosis of liver (12/05/22) ?K76.0 - Fatty (change of) liver, not elsewhere classified (ICD-10) Seasonal allergic rhinitis (12/05/22) ?J30.2 - Other seasonal allergic rhinitis (ICD-10) Reactive gastropathy (12/05/22) ?K31.89 - Other diseases of stomach and duodenum (ICD-10) Osteopenia (12/05/22) ?M85.80 - Other specified disorders of bone density and structure, unspecified site (ICD-10) Osteoarthrosis (12/05/22) ?M19.90 - Unspecified osteoarthritis, unspecified site (ICD-10) Multinodular goiter (12/05/22) ?E04.2 - Nontoxic multinodular goiter (ICD-10) Malignant neoplasm of uterus (12/05/22) ?C55 - Malignant neoplasm of uterus, part unspecified (ICD-10) Malignant neoplasm of breast (12/05/22) ?C50.919 - Malignant neoplasm of unspecified site of unspecified female breast (ICD-10) Hypertension (12/05/22) ?I10 - Essential (primary) hypertension (ICD-10) Hyperlipidemia (12/05/22) ?E78.5 - Hyperlipidemia, unspecified (ICD-10) Hiatal hernia (12/05/22) ?K44.9 - Diaphragmatic hernia without obstruction or gangrene (ICD-10) GERD (gastroesophageal reflux disease) (12/05/22) ?K21.9 - Gastro-esophageal reflux disease without esophagitis (ICD-10) Gastroesophageal reflux disease with esophagitis (03/17/19) ?K21.00 - Gastro-esophageal reflux disease with esophagitis, without bleeding (ICD-10) Essential tremor (12/05/22) ?G25.0 - Essential tremor (ICD-10) Calculus of kidney (12/05/22) ?N20.0 - Calculus of kidney (ICD-10) Adenomatous colon polyp (12/05/22) ?D12.6 - Benign neoplasm of colon, unspecified (ICD-10) Vascular graft thrombosis ?T82.868A - Thrombosis due to vascular prosthetic devices, implants and grafts, initial encounter (ICD-10) Tobacco abuse ?Z72.0 - Tobacco use (ICD-10) Surgical History Status post nasal surgery ?Z98.890 - Other specified postprocedural states (ICD-10) Status post mastectomy ?Z90.10 - Acquired absence of unspecified breast and nipple (ICD-10) Status post cholecystectomy ?Z90.49 - Acquired absence of other specified parts of digestive tract (ICD-10) Status post abdominal aortic aneurysm repair (12/11/14) ?Z98.890 - Other specified postprocedural states (ICD-10) ?Z86.79 - Personal history of other diseases of the circulatory system (ICD-10) History of total hip replacement ?Z96.649 - Presence of unspecified artificial hip joint (ICD-10) History of tonsillectomy ?Z90.89 - Acquired absence of other organs (ICD-10) History of hysterectomy ?Z90.710 - Acquired absence of both cervix and uterus (ICD-10) History of breast implant ?Z98.82 - Breast implant status (ICD-10) History of bilateral oophorectomy ?Z90.722 - Acquired absence of ovaries, bilateral (ICD-10) History of appendectomy ?Z90.49 - Acquired absence of other specified parts of digestive tract (ICD-10) Family History Other Colon cancer Social History (Updated 07/17/24 @ 20:49 by Tigre Olvera MD) Narrative: She lives with her , Jayy, in [place]. He is healthcare power of health education coordinator. Code status is full. Remote history of smoking. What is your current living situation?: I presently have a place to live Problems where you live: no known problems In the past 12 months, utilities in danger of being shut off: no In past 12 months, lack of transportation kept you from medical appts, meetings, work, or getting things needed for daily living: no In the past 12 mos, have been you worried that your food would run out before you had money to buy more?: never true In the past 12 mos, the food you bought just didn't last and you didn't have money to buy more?: never true Smoking Status: Never smoker How often does anyone, including family, friends and others, physically hurt you: never How often does anyone, including family, friends and others, insult or talk down to you: never How often does anyone, including family, friends and others, threaten you with harm: never How often does anyone, including family, friends and others, scream or curse at you: never Meds Home Medications and Allergies Home Medications ?Medication ?Instructions ?Recorded ?Confirmed ?Type aspirin 81 mg tablet,delayed 81 mg PO DAILY 10/05/21 06/18/24 History release milk thistle seed extract PO .QDaily 10/05/21 06/18/24 History multivitamin (Multiple Vitamins 1 tab PO QAM 10/05/21 06/18/24 History tablet) omega-3 fatty acids [Fish Oil] PO .QDaily 10/05/21 06/18/24 History vitamin B complex 1 tab PO QDAY 10/05/21 06/18/24 History cholestyramine (with sugar) 4 gram ea PO BID 12/13/22 06/18/24 History oral powder cholecalciferol (vitamin D3) 25 25 mcg PO QDAY 06/13/23 06/18/24 History mcg (1,000 unit) capsule glucosamine 750 jx-ayvhlmokpsk-vhj tab PO BID 06/13/23 06/18/24 History no1 625 mg-C 30 mg-frandy 1 mg tablet (Zzyozuxdpwj-Rtsrdudrlaw-NNL) lutein 20 mg capsule 20 mg PO QDAY 06/13/23 06/18/24 History lancets 28 gauge (FreeStyle #100 ea 10/08/23 06/18/24 Rx Lancets) atorvastatin 10 mg tablet 10 mg PO .Bedtime #90 tabs 12/19/23 07/17/24 Rx azelastine 137 mcg (0.1 %) nasal 2 spray intranasal BID #30 mL 12/19/23 06/18/24 Rx spray fenofibrate micronized 134 mg 134 mg PO DAILY #90 caps 12/19/23 07/17/24 Rx capsule losartan 50 mg tablet 50 mg PO DAILY #90 tabs 12/19/23 06/18/24 Rx metformin 500 mg tablet,extended 1,000 mg (2 x 500 mg) PO BID #360 12/19/23 06/18/24 Rx release 24 hr tabs blood sugar diagnostic #100 ea 12/31/23 Rx blood-glucose meter (Contour Next #1 ea 12/31/23 Rx Glucose Meter kit) lancets (Accu-Chek Softclix #100 ea 01/01/24 Rx Lancets) calcium carbonate (Tums) 200 mg PO DAILY 06/18/24 06/18/24 History melatonin 10 mg capsule 10 mg PO QHS 06/18/24 06/18/24 History Allergies Allergy/AdvReac Type Severity Reaction Status Date / Time chlorthalidone Allergy Verified 07/17/24 13:38 lisinopril AdvReac Unknown Cough Verified 07/17/24 13:38 Butter Allergy Uncoded 06/18/24 13:53 Exam Narrative: Exam Narrative: She is alert and appears in no distress. She gives her own history with good detail. Head is without trauma. Eyes normal. Oropharynx normal. Neck is supple without mass or adenopathy. Respirations are clear to auscultation. Breathing is unlabored. Cardiovascular: S1, S2, regular rate and rhythm. No murmur gallop or rub. Abdomen: Bowel sounds active. Abdomen is soft without tenderness or mass. External genitalia normal. Extremities without edema. She has intact but diminished peripheral pulses. Const: Vital Signs, click to edit/add: Vital Signs - 24 hr 07/17/24 13:30 07/17/24 13:39 07/17/24 14:00 Temperature 96.8 F L Pulse Rate Pulse Rate [Left P ulse Oximeter] Pulse Rate [Pulse Oximeter] 89 Respiratory Rate 16 Blood Pressure Blood Pressure [Ri ght Arm] Blood Pressure [Ri ght Upper Arm] 115/66 107/76 84/53 L Pulse Oximetry 96 Oxygen Delivery Me thod Room Air 07/17/24 14:30 07/17/24 15:00 07/17/24 16:42 Temperature Pulse Rate 89 Pulse Rate [Left P ulse Oximeter] Pulse Rate [Pulse Oximeter] Respiratory Rate Blood Pressure Blood Pressure [Ri ght Arm] Blood Pressure [Ri ght Upper Arm] 102/61 91/73 Pulse Oximetry 94 Oxygen Delivery Me thod 07/17/24 16:45 07/17/24 17:00 07/17/24 17:15 Temperature Pulse Rate 94 86 83 Pulse Rate [Left P ulse Oximeter] Pulse Rate [Pulse Oximeter] Respiratory Rate Blood Pressure Blood Pressure [Ri ght Arm] Blood Pressure [Ri ght Upper Arm] Pulse Oximetry 94 96 96 Oxygen Delivery Oh thod 07/17/24 17:30 07/17/24 17:33 07/17/24 17:42 Temperature Pulse Rate 83 87 87 Pulse Rate [Left P ulse Oximeter] Pulse Rate [Pulse Oximeter] Respiratory Rate Blood Pressure 83/57 L 124/92 H Blood Pressure [Ri ght Arm] Blood Pressure [Ri ght Upper Arm] Pulse Oximetry 88 97 97 Oxygen Delivery Me thod 07/17/24 17:45 07/17/24 18:00 07/17/24 18:01 Temperature Pulse Rate 89 92 85 Pulse Rate [Left P ulse Oximeter] Pulse Rate [Pulse Oximeter] Respiratory Rate Blood Pressure 118/75 Blood Pressure [Ri ght Arm] Blood Pressure [Ri ght Upper Arm] Pulse Oximetry 92 93 Oxygen Delivery Me thod 07/17/24 18:02 07/17/24 18:15 07/17/24 19:09 Temperature Pulse Rate 84 91 Pulse Rate [Left P ulse Oximeter] 92 Pulse Rate [Pulse Oximeter] Respiratory Rate 18 Blood Pressure Blood Pressure [Ri ght Arm] 109/62 Blood Pressure [Ri ght Upper Arm] Pulse Oximetry 96 95 96 Oxygen Delivery Me thod Room Air 07/17/24 20:33 Temperature 98.2 F Pulse Rate Pulse Rate [Left P ulse Oximeter] 82 Pulse Rate [Pulse Oximeter] Respiratory Rate 16 Blood Pressure Blood Pressure [Ri ght Arm] 108/74 Blood Pressure [Ri ght Upper Arm] Pulse Oximetry 96 Oxygen Delivery Me thod Room Air Documenting provider has reviewed patient's vital signs: yes Hospitalist - H&P: Result Labs Labs: Short CBC 07/17/24 07/17/24 Range/Units 13:50 17:05 WBC 13.81 H (4.50-11.00) K/uL Hgb 11.1 L 9.2 L (12.0-16.0) gm/dL Hct 35.3 (33.0-51.0) % Plt Count 320 (140-440) K/uL BMP 07/17/24 13:50 Sodium 142 Potassium 4.8 Chloride 110 Carbon Dioxide 24 BUN 42 H Creatinine 0.8 Glucose 157 H Calcium 9.9 Liver Function 07/17/24 Range/Units 13:50 Total Bilirubin 0.4 (0.1-1.5) mg/dL Direct Bilirubin 0.2 (0.0-0.5) mg/dL AST 28 (12-35) U/L ALT 23 (4-35) U/L Alkaline Phosphatase 40 (40-150) U/L Albumin 3.9 (3.3-5.0) g/dL Imaging CT scan - abdomen: Radiologist's impression: INDICATION: Melena. COMPARISON: 02/14/2021 TECHNIQUE: CT angiogram abdomen and pelvis without and with contrast, GI bleed protocol to include pre-contrast, arterial phase (CT angiography), and portal venous phase imaging. Multiplanar axial, coronal, and sagittal reformats are included. MIP images to improve detection of arterial pathology. Intravenous contrast: 95 ml Isovue 370. FINDINGS: Aorta and its branches: Well-timed contrast bolus. Aortic stent graft. There is some peripheral filling defect along the anterior margin of the mid to distal stent. Previous exams have been without IV contrast. There are bilateral renal artery stents that are both patent. There is good contrast filling of the iliac vessels. No acute aortic finding. The mesenteric vessels are patent without critical stenosis. The common, internal, and external iliac arteries are patent without critical stenosis. The common femoral arteries are patent without critical stenosis. GI: Normal. No dilated segments. No abnormal bowel wall thickening or unusual bowel enhancement. Distal colonic diverticulosis without a focally inflamed diverticuli or active diverticular bleeding seen. No active GI bleeding seen on CT. Moderate stool burden. The appendix is not discretely seen. Lung bases: Unchanged left lower lobe nodule. Liver: Diffuse hepatic steatosis. The liver is not enlarged or cirrhotic. Gallbladder and bile ducts: Cholecystectomy. Mildly dilated extrahepatic bile duct is similar to prior. Pancreas: Normal. Spleen: Normal. Adrenal glands: Normal. Kidneys: Normal overall renal size and position. There is some bilateral renal scarring and volume loss. There are several renal cysts. No solid renal mass. There are several right renal calculi. The largest measures 1.4 centimeters. There is a 3 millimeter left renal calculus. No ureteral calculi. No urinary tract dilation. Urinary bladder: Fairly filled. Pelvis: Streak artifact from the hip arthroplasties. Lymph nodes: No adenopathy. Peritoneum: No ascites. Abdominal wall: No bowel containing hernia. BONES: Right hip arthroplasty. Left hip osteoarthritis. Advanced disc and facet degeneration. Sacral Tarlov cysts. No focal bone lesions. Normal for age. IMPRESSION: 1. No active arterial GI bleeding. Widely patent mesenteric arteries and veins. 2. Aortic stent graft with some eccentric endothelial thickening or thrombus in the mid to distal portion. 3. Diffuse hepatic steatosis.
[2024-07-17] MEDS: OMEPRAZOLE 20 MG CAPSULE DR PO (21:34)
[2024-07-17] MEDS: LACTATED RINGERS 1000 ML 1,000 ML 75 ML IV (21:34)
[2024-07-17] MEDS: SODIUM CHLORIDE 0.9 % (FLUSH) 10 ML SYRINGE 5 ML IVF (21:35)
[2024-07-17 23:08] LABS: Hemoglobin* 9.3 gm/dL (12.0-16.0)
[2024-07-17] MEDS: MELATONIN 3 MG TABLET 9 MG PO (23:47)
[2024-07-18 03:00] VITALS: BP 102/58; PULSE 81; RESP 16; TEMP 36.4; O2SAT 96
[2024-07-18 07:00] VITALS: BP 103/66; PULSE 75; PULSE 85; RESP 18; TEMP 36.4; O2SAT 94
--- NOTE | 2024-07-18 07:22 | PC.NURSE ---
Pt alert, oriented and vitally stable. Pt needs occasional restating. Denies pain and nausea. Pt up independently, tolerated well. NPO. Pt in bed, appears to be resting call light within reach.?
[2024-07-18 08:35] LABS: Hematocrit 28.6 % (33.0-51.0); Hemoglobin* 9.1 gm/dL (12.0-16.0); Mean Corpuscular HGB Conc 32 gm/dL (32-36); Mean Corpuscular Hemoglobin 30 pg (26-34); Mean Corpuscular Volume 94 fL (80-100); Platelet Count* 262 K/uL (140-440); Red Blood Count 3.06 m/uL (4.00-5.20); White Blood Count* 8.31 K/uL (4.50-11.00)
[2024-07-18 08:37] LABS: Slide Review Reflex No
[2024-07-18 08:47] LABS: Chloride* 107 mmol/L (96-114); Sodium* 140 mmol/L (135-149)
[2024-07-18 08:51] LABS: Anion Gap 4 mEq/L (7-15); Blood Urea Nitrogen* 25 mg/dL (7-30); Calcium* 9.1 mg/dL (8.4-10.6); Carbon Dioxide* 29 mmol/L (20-32); Creatinine* 0.7 mg/dL (0.5-1.5); Est. Creatinine Clearance* 36.16; Estimated Glomerular Filt Rate 85 ml/min; Glucose* 106 mg/dL (60-115)
--- NOTE | 2024-07-18 09:23 | P.ANES_ITS ---
Anesthesia Charges Start Date/Time Anesthesia Start Date: 07/18/24 Anesthesia Start Time: 09:25 Stop Date/Time Anesthesia Stop Date: 07/18/24 Anesthesia Stop Time: 09:41 Summary Extremes of Age - Over 70 or under 1: MDA Coding CPT Codes CPT Codes: ANES UPR GI NDSC PX NOS - 87665 ([id number]) P3 - PATIENT W/SEVERE SYS DISEASE, QK - ORTHOTIC AND PROSTHETIC TECHNICIAN 2-4 CNCRNT ANES PROC, QX - SIMULATION ANALYST SVC W/ MD MED DIRECTION Additional Codes: Summary - Extremes of Age - Over 70 or under 1: MDA ([id number])
--- NOTE | 2024-07-18 09:23 | W.ANESCHARGE ---
Anesthesia Charges Start Date/Time Anesthesia Start Date: 07/18/24 Anesthesia Start Time: 09:25 Stop Date/Time Anesthesia Stop Date: 07/18/24 Anesthesia Stop Time: 09:41 Summary Extremes of Age - Over 70 or under 1: MDA Coding CPT Codes CPT Codes: ANES UPR GI NDSC PX NOS - 33704 ([id number]) P3 - PATIENT W/SEVERE SYS DISEASE, QK - COUNTER ATTENDANT 2-4 CNCRNT ANES PROC, QX - TITLE ABSTRACTOR SVC W/ MD MED DIRECTION Additional Codes: Summary - Extremes of Age - Over 70 or under 1: MDA ([id number])
--- NOTE | 2024-07-18 09:44 | P.ANES_ITS ---
Anesthesia Charges Start Date/Time Anesthesia Start Date: 07/18/24 Anesthesia Start Time: 09:25 Stop Date/Time Anesthesia Stop Date: 07/18/24 Anesthesia Stop Time: 09:41 Summary Extremes of Age - Over 70 or under 1: FOLDING MACHINE FEEDER Coding CPT Codes CPT Codes: ANES UPR GI NDSC PX NOS - 16480 ([id number]) P3 - PATIENT W/SEVERE SYS DISEASE, QK - CLINICAL HAEMATOLOGIST 2-4 CNCRNT ANES PROC, QX - FOLDING MACHINE FEEDER SVC W/ MD MED DIRECTION Additional Codes: Summary - Extremes of Age - Over 70 or under 1: FOLDING MACHINE FEEDER ([id number])
--- NOTE | 2024-07-18 09:44 | W.ANESCHARGE ---
Anesthesia Charges Start Date/Time Anesthesia Start Date: 07/18/24 Anesthesia Start Time: 09:25 Stop Date/Time Anesthesia Stop Date: 07/18/24 Anesthesia Stop Time: 09:41 Summary Extremes of Age - Over 70 or under 1: PLANT OPERATIONS MANAGER Coding CPT Codes CPT Codes: ANES UPR GI NDSC PX NOS - 97044 ([id number]) P3 - PATIENT W/SEVERE SYS DISEASE, QK - TIRE WORKER 2-4 CNCRNT ANES PROC, QX - PLANT OPERATIONS MANAGER SVC W/ MD MED DIRECTION Additional Codes: Summary - Extremes of Age - Over 70 or under 1: PLANT OPERATIONS MANAGER ([id number])
[2024-07-18] MEDS: OMEPRAZOLE 20 MG CAPSULE DR PO ×2 (10:38→20:57)
[2024-07-18 11:00] VITALS: BP 119/66; PULSE 75; RESP 18; TEMP 36.6; O2SAT 94
[2024-07-18] MEDS: LACTATED RINGERS 1000 ML 1,000 ML 75 ML IV (13:14)
[2024-07-18 15:00] VITALS: BP 112/62; PULSE 85; RESP 18; TEMP 36.6; O2SAT 97
--- NOTE | 2024-07-18 16:27 | PM.IMPN1 ---
Assessment and Plan Assessment and plan (1) Acute upper gastrointestinal bleeding: Problem comment: Melanotic stools and 5 g hemoglobin drop EGD without acute findings, active bleed Had another episode of bloody soft stool following lunch on 07/18 Discussed colonoscopy and prep for Sunday with patient May need to consider capsule endoscopy - not done at this facility Status: Acute (2) Vascular graft thrombosis: Problem comment: CT abdomen and pelvis on 07/17/2024 shows old thrombosis in the distal portion of her AAA repair Nonemergent outpatient vascular consultation recommended Status: Acute (3) Microscopic colitis: Problem comment: Diagnosed 2022. Takes cholestyramine daily -hold Status: Acute (4) Type 2 diabetes mellitus, controlled: Problem comment: Most recent A1c 6.2 Metformin on hold Status: Acute (5) Hypertension: Problem comment: Resume losartan Status: Acute (6) Hyperlipidemia: Problem comment: Continue statin Status: Acute Plan Colonoscopy Sunday for active GI bleed Total Time Spent Total Time Spent: Today I spent 45 minutes seeing the patient, reviewing Expanse and EPIC notes/diagnostics, discussing the care plan with our care time that includes social work, PT/OT, pharmacy, RT, usp and documenting my impressions and plan in the medical record. Subjective Date Seen: 07/18/24 Interval history: Patient is seen today sitting up on side of bed. Just completed her EGD which was reported as normal. No acute findings. No active bleed. Last bowel movement was last evening and was dark. Has not yet eaten this morning. Denies headache or dizziness. Denies chest pain or shortness of breath. No nausea or vomiting. Has a history of colitis for which she is on cholestyramine. Reports diarrhea has been under good control prior to recent episodes. Exam Narrative: Exam Narrative: PHYSICAL EXAM General: Pleasant, conversant, NAD HEENT: Normocephalic, atraumatic, sclera white, EOMI, oral mucosa moist Cardiovascular: RRR, S1S2. No pitting edema Pulmonary: CTA bilaterally without rhonchi, rales, expiratory wheezes. No dyspnea Abdominal: Mildly distended after EGD, NTTP Neurological: Alert, answering questions appropriately, cranial nerves intact, no focal findings Extremities: No gross joint deformity or swelling. AROMI. Neurovascularly intact Skin: Warm, dry. Const: Vital Signs, click to edit/add: Vital Signs - 24 hr 07/17/24 16:42 05/15/25 16:45 07/17/24 17:00 Temperature Pulse Rate 89 94 86 Pulse Rate [Left P ulse Oximeter] Respiratory Rate Blood Pressure Blood Pressure [Ri ght Arm] Pulse Oximetry 94 94 96 Oxygen Delivery Me thod 07/17/24 17:15 07/17/24 17:30 07/17/24 17:33 Temperature Pulse Rate 83 83 87 Pulse Rate [Left P ulse Oximeter] Respiratory Rate Blood Pressure 83/57 L Blood Pressure [Ri ght Arm] Pulse Oximetry 96 88 97 Oxygen Delivery Me thod 07/17/24 17:42 07/17/24 17:45 07/17/24 18:00 Temperature Pulse Rate 87 89 92 Pulse Rate [Left P ulse Oximeter] Respiratory Rate Blood Pressure 124/92 H Blood Pressure [Ri ght Arm] Pulse Oximetry 97 92 Oxygen Delivery Me thod 07/17/24 18:01 07/17/24 18:02 07/17/24 18:15 Temperature Pulse Rate 85 84 91 Pulse Rate [Left P ulse Oximeter] Respiratory Rate Blood Pressure 118/75 Blood Pressure [Ri ght Arm] Pulse Oximetry 93 96 95 Oxygen Delivery Me thod 07/17/24 19:04 07/17/24 19:09 07/17/24 20:33 Temperature 98.2 F Pulse Rate Pulse Rate [Left P ulse Oximeter] 92 82 Respiratory Rate 18 16 Blood Pressure Blood Pressure [Ri ght Arm] 109/62 108/74 Pulse Oximetry 95 96 96 Oxygen Delivery Me thod Room Air Room Air Room Air 07/17/24 23:00 07/17/24 23:00 07/18/24 03:00 Temperature 98.2 F 97.6 F Pulse Rate Pulse Rate [Left P ulse Oximeter] 82 88 81 Respiratory Rate 16 18 16 Blood Pressure Blood Pressure [Ri ght Arm] 128/68 102/58 L Pulse Oximetry 94 96 Oxygen Delivery Me thod Room Air Room Air 07/18/24 07:00 07/18/24 07:00 07/18/24 11:00 Temperature 97.6 F 97.8 F Pulse Rate Pulse Rate [Left P ulse Oximeter] 85 75 75 Respiratory Rate 18 18 18 Blood Pressure Blood Pressure [Ri ght Arm] 103/66 119/66 Pulse Oximetry 94 94 Oxygen Delivery Me thod Room Air Room Air Labs Labs: Laboratory Results - last 24 hr 07/17/24 07/17/24 07/17/24 16:00 17:05 22:58 WBC RBC Hgb 9.2 L 9.3 L Hct MCV MCH MCHC Plt Count Sodium Potassium Chloride Carbon Dioxide Anion Gap BUN Creatinine Estimated Creat Clear Estimated GFR Glucose Lactate 1.9 Calcium Stool Occult Blood Positive A 07/18/24 08:21 WBC 8.31 RBC 3.06 L Hgb 9.1 L Hct 28.6 L MCV 94 MCH 30 MCHC 32 Plt Count 262 Sodium 140 Potassium 4.0 Chloride 107 Carbon Dioxide 29 Anion Gap 4 L BUN 25 Creatinine 0.7 Estimated Creat Clear 36.16 Estimated GFR 85 Glucose 106 Lactate Calcium 9.1 Stool Occult Blood
--- NOTE | 2024-07-18 18:15 | PC.NURSE ---
End of Shift ([id number]): Patient pleasant and cooperative, A&O. VSS, afebrile. EGD completed this morning. Patient has had 2 small bloody stools this shift, MD notified. Patient reports mild abdominal pain after her BM?s this shift, declined PRN medication. Denies nausea. Pt is on a regular diet. SBA to bathroom. ?
[2024-07-18 19:00] VITALS: BP 125/77; PULSE 90; RESP 18; TEMP 36.5; O2SAT 96
[2024-07-18] MEDS: ATORVASTATIN CALCIUM 10 MG TABLET PO (20:56)
[2024-07-18 23:00] VITALS: BP 114/63; PULSE 77; RESP 20; TEMP 36.4; O2SAT 93
[2024-07-18] MEDS: VANCOMYCIN 1 GM/200 ML 1 GM/200 ML PIGGYBACK IVPB (23:12)
[2024-07-19] MEDS: MELATONIN 3 MG TABLET 9 MG PO (00:12)
[2024-07-19 03:00] VITALS: BP 116/70; PULSE 79; RESP 18; TEMP 36.4; O2SAT 94
[2024-07-19] MEDS: LACTATED RINGERS 1000 ML 1,000 ML 75 ML IV ×2 (03:05→16:15)
--- NOTE | 2024-07-19 06:28 | PC.NURSE ---
Shift note ([id number]): Patient pleasant, alert and oriented. Ambulated independently in room. Denied pain. Per pt has had no stools this shift. ?
[2024-07-19 07:00] VITALS: BP 126/77; PULSE 74; RESP 18; TEMP 36.4; O2SAT 96
[2024-07-19 07:14] LABS: Hematocrit 26.5 % (33.0-51.0); Hemoglobin* 8.4 gm/dL (12.0-16.0); Mean Corpuscular HGB Conc 32 gm/dL (32-36); Mean Corpuscular Hemoglobin 30 pg (26-34); Mean Corpuscular Volume 93 fL (80-100); Platelet Count* 263 K/uL (140-440); Red Blood Count 2.85 m/uL (4.00-5.20); White Blood Count* 7.02 K/uL (4.50-11.00)
--- NOTE | 2024-07-19 07:26 | P.IMPN_ITS ---
Assessment and Plan Assessment and plan (1) Acute upper gastrointestinal bleeding: Problem comment: Melanotic stools and 5 g hemoglobin drop. Hemoglobin 11.1 -> 9.2 -> 9.1 -> 8.4 EGD without acute findings, active bleed Had another episode of bloody soft stool following lunch on 07/18 Discussed colonoscopy and prep for Sunday with patient May need to consider capsule endoscopy - not done at this facility 07/19 - 1 dark stool in past 24 hours. Tolerating orals without increased stooling. Hemoglobin continues to trend down, 8.4 today. Plan is to begin prep tomorrow for colonoscopy on Sunday. 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 Takes cholestyramine daily which she reports helping with her stools-being held Status: Acute (4) Type 2 diabetes mellitus, controlled: Problem comment: Most recent A1c 6.2 Metformin on hold Status: Acute (5) Hypertension: Problem comment: Resume losartan Status: Acute (6) Hyperlipidemia: Problem comment: Continue statin Status: Acute Plan Colonoscopy Sunday for active GI bleed Total Time Spent Total Time Spent: Today I spent 45 minutes seeing the patient, reviewing Expanse and EPIC notes/diagnostics, discussing the care plan with our care time that includes social work, PT/OT, pharmacy, RT, jail and documenting my impressions and plan in the medical record. Subjective Date Seen: 07/19/24 Interval history: Patient is seen sitting up in bed this morning. Reports feeling pretty well. Has only had 1 stool since yesterday. That 1 was dark with blood in the toilet. Denies headache or dizziness. Denies chest pain or shortness of breath. Tolerating orals without nausea vomiting. Has been eating without increasing stools. Hemoglobin today is 8.4. Concern for ongoing active bleed. Plan is to start prep for colonoscopy on Sunday. Exam Narrative: Exam Narrative: PHYSICAL EXAM General: Pleasant, conversant, NAD Cardiovascular: RRR, S1S2. No pitting edema Pulmonary: CTA bilaterally without rhonchi, rales, expiratory wheezes. No dyspnea on room air Abdominal: Soft, nontender, nondistended Neurological: Alert, answering questions appropriately, cranial nerves intact, no focal findings Extremities: No gross joint deformity or swelling. AROMI. Neurovascularly intact Skin: Warm, dry. Const: Vital Signs, click to edit/add: Vital Signs - 24 hr 07/18/24 11:00 07/18/24 15:00 07/18/24 15:00 Temperature 97.8 F 97.8 F Pulse Rate [Left P ulse Oximeter] 75 85 85 Respiratory Rate 18 18 18 Blood Pressure [Ri ght Arm] 119/66 112/62 Pulse Oximetry 94 97 Oxygen Delivery Me thod Room Air Room Air 07/18/24 19:00 07/18/24 23:00 07/19/24 03:00 Temperature 97.7 F 97.5 F L 97.5 F L Pulse Rate [Left P ulse Oximeter] 90 77 79 Respiratory Rate 18 20 18 Blood Pressure [Ri ght Arm] 125/77 114/63 116/70 Pulse Oximetry 96 93 94 Oxygen Delivery Me thod Room Air Room Air Room Air Labs Labs: Laboratory Results - last 24 hr 07/18/24 08:21 WBC 8.31 RBC 3.06 L Hgb 9.1 L Hct 28.6 L MCV 94 MCH 30 MCHC 32 Plt Count 262 Sodium 140 Potassium 4.0 Chloride 107 Carbon Dioxide 29 Anion Gap 4 L BUN 25 Creatinine 0.7 Estimated Creat Clear 36.16 Estimated GFR 85 Glucose 106 Calcium 9.1
[2024-07-19 07:28] LABS: Slide Review Reflex No
[2024-07-19 07:29] LABS: Chloride* 109 mmol/L (96-114); Potassium* 3.4 mmol/L (3.6-5.1); Sodium* 139 mmol/L (135-149)
[2024-07-19 07:32] LABS: Blood Urea Nitrogen* 16 mg/dL (7-30); Creatinine* 0.7 mg/dL (0.5-1.5); Est. Creatinine Clearance* 36.16; Estimated Glomerular Filt Rate 85 ml/min
[2024-07-19 07:33] LABS: Anion Gap 4 mEq/L (7-15); Calcium* 9.1 mg/dL (8.4-10.6); Carbon Dioxide* 26 mmol/L (20-32); Glucose* 109 mg/dL (60-115)
[2024-07-19] MEDS: LOSARTAN POTASSIUM 50 MG TABLET PO (09:01)
[2024-07-19] MEDS: OMEPRAZOLE 20 MG CAPSULE DR PO ×2 (09:01→20:39)
[2024-07-19 11:00] VITALS: BP 121/77; PULSE 76; RESP 18; TEMP 36.7; O2SAT 98
[2024-07-19 15:00] VITALS: BP 147/87; PULSE 76; RESP 18; TEMP 36.4; O2SAT 98
[2024-07-19 19:00] VITALS: BP 139/71; PULSE 83; RESP 22; TEMP 36.1; O2SAT 97
--- NOTE | 2024-07-19 19:15 | PC.NURSE ---
End of Shift: Patient pleasant and cooperative, A&O. VSS, afebrile. SpO2 maintained above 90% on RA. Patient declines pain this shift. Pt had one black tarry BM this shift. SBA
[2024-07-19] MEDS: ATORVASTATIN CALCIUM 10 MG TABLET PO (20:39)
[2024-07-20] VITALS (7 sets, daily range): BP systolic 128–164; BP diastolic 76–92; PULSE 68–81; RESP 18–21; TEMP 36.1–36.4; O2SAT 93–99
[2024-07-20] MEDS: MELATONIN 3 MG TABLET 9 MG PO (01:12)
[2024-07-20] MEDS: VANCOMYCIN 1 GM/200 ML 1 GM/200 ML PIGGYBACK IVPB (01:15)
[2024-07-20 06:34] LABS: Hematocrit 27.2 % (33.0-51.0); Hemoglobin* 8.7 gm/dL (12.0-16.0); Mean Corpuscular HGB Conc 32 gm/dL (32-36); Mean Corpuscular Hemoglobin 30 pg (26-34); Mean Corpuscular Volume 93 fL (80-100); Platelet Count* 277 K/uL (140-440); Red Blood Count 2.92 m/uL (4.00-5.20); White Blood Count* 6.53 K/uL (4.50-11.00)
[2024-07-20 06:38] LABS: Slide Review Reflex No
[2024-07-20] MEDS: LACTATED RINGERS 1000 ML 1,000 ML 75 ML IV (06:50)
--- NOTE | 2024-07-20 07:22 | PC.NURSE ---
Shift note ([id number]): Patient pleasant, alert and oriented. Ambulated independently in room. Denied pain. No stools this shift. Both IVs were leaking and removed. New IV placed in upper right arm.?
[2024-07-20] MEDS: OMEPRAZOLE 20 MG CAPSULE DR PO ×2 (09:28→21:17)
[2024-07-20] MEDS: LOSARTAN POTASSIUM 50 MG TABLET PO (09:28)
[2024-07-20] MEDS: ONDANSETRON 2 MG/ML inj 4 MG IVP (11:36)
[2024-07-20] MEDS: bisacodyL 5 MG TABLET DR 10 MG PO (12:23)
--- NOTE | 2024-07-20 12:33 | P.IMPN_ITS ---
Assessment and Plan Assessment and plan (1) Acute upper gastrointestinal bleeding: Problem comment: Melanotic stools and 5 g hemoglobin drop. Hemoglobin 11.1 -> 9.2 -> 9.1 -> 8.4 -> 8.7 EGD without acute findings, active bleed Had another episode of bloody soft stool following lunch on 07/18 Discussed colonoscopy and prep for Sunday with patient May need to consider capsule endoscopy - not done at this facility 07/19 - 1 dark stool in past 24 hours. Tolerating orals without increased stool ing. Hemoglobin continues to trend down, 8.4 today. Plan is to begin prep tomorrow for colonoscopy on Sunday. Repeat hemoglobin today if increased stools 07/20 - continues with 1 small dark stool daily. Hemoglobin stable at 8.7. Start prep today for colonoscopy on Sunday. Clear liquids. NPO at midnight. 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 Takes cholestyramine daily which she reports helping with her stools-being held Status: Acute (4) Type 2 diabetes mellitus, controlled: Problem comment: Most recent A1c 6.2 Metformin on hold Status: Acute (5) Hypertension: Problem comment: Continue losartan Status: Acute (6) Hyperlipidemia: Problem comment: Continue statin Status: Acute (7) Contamination of blood culture: Problem comment: Blood culture 07/18 growing Gram-positive rods resembling bacillus. Send out culture results are negative. Received 2 doses IV vancomycin. Repeat blood culture on 07/19 NGTD. No further antibiotics warranted Status: Acute Plan Colonoscopy Sunday for active GI bleed. Discharge planning pending results Total Time Spent Total Time Spent: Today I spent 45 minutes seeing the patient, reviewing Expanse and EPIC notes/diagnostics, discussing the care plan with our care time that includes social work, PT/OT, pharmacy, RT, care home and documenting my impressions and plan in the medical record. Subjective Date Seen: 07/20/24 Interval history: Patient is seen lying in bed this morning. Did not sleep well overnight due to IV complications. Otherwise denies headache or dizziness. Denies chest pain or shortness of breath. Remains afebrile. Continues to have approximately 1 small dark stool daily. Hemoglobin stable at 8.7. Will start prep today for colonoscopy tomorrow. Clear liquids. NPO at midnight. Exam Narrative: Exam Narrative: PHYSICAL EXAM General: Pleasant, conversant, NAD Cardiovascular: RRR, S1S2. No pitting edema Pulmonary: CTA bilaterally without rhonchi, rales, expiratory wheezes. No dyspnea on room air Abdominal: Soft, nontender, nondistended Neurological: Alert, answering questions appropriately, cranial nerves intact, no focal findings Extremities: No gross joint deformity or swelling. AROMI. Neurovascularly i ntact Skin: Warm, dry. Const: Vital Signs, click to edit/add: Vital Signs - 24 hr 07/19/24 15:00 07/19/24 15:00 07/19/24 19:00 Temperature 97.5 F L 97.0 F L Pulse Rate [Left P ulse Oximeter] 76 76 83 Respiratory Rate 18 18 22 Blood Pressure [Ri ght Arm] 147/87 H 139/71 Pulse Oximetry 98 97 Oxygen Delivery Me thod Room Air Room Air 07/20/24 01:54 07/20/24 03:00 07/20/24 07:00 Temperature 97.3 F L 97.0 F L 97.6 F Pulse Rate [Left P ulse Oximeter] 77 73 74 Respiratory Rate 21 19 18 Blood Pressure [Ri ght Arm] 164/92 H 153/76 H 140/80 H Pulse Oximetry 99 96 96 Oxygen Delivery Me thod Room Air Room Air Room Air 07/20/24 07:00 07/20/24 11:00 Temperature 97.5 F L Pulse Rate [Left P ulse Oximeter] 74 80 Respiratory Rate 18 18 Blood Pressure [Ri ght Arm] 132/78 Pulse Oximetry 95 Oxygen Delivery Me thod Room Air Labs Labs: Laboratory Results - last 24 hr 07/20/24 05:56 WBC 6.53 RBC 2.92 L Hgb 8.7 L Hct 27.2 L MCV 93 MCH 30 MCHC 32 Plt Count 277
[2024-07-20] MEDS: polyethylene glycoL 238 GM BULK BOTTLE PO (16:19)
--- NOTE | 2024-07-20 19:45 | PC.NURSE ---
End of Shift: Patient pleasant and cooperative, A&O. VSS, afebrile. SpO2 maintianed above 90% on RA. Declines pain this shift. Pt refused eating today with upcoming bowel prep, education provided on how she is able to eat this shift, pt still refused.
[2024-07-20] MEDS: ATORVASTATIN CALCIUM 10 MG TABLET PO (21:17)
[2024-07-20] MEDS: SODIUM CHLORIDE 0.9 % (FLUSH) 10 ML SYRINGE 5 ML IVF (21:17)
[2024-07-21] VITALS (7 sets, daily range): BP systolic 120–168; BP diastolic 66–109; PULSE 66–100; RESP 15–18; TEMP 35.7–36.4; O2SAT 93–100
[2024-07-21] MEDS: MELATONIN 3 MG TABLET 9 MG PO ×2 (00:06→23:35)
[2024-07-21] MEDS: LACTATED RINGERS 1000 ML 1,000 ML 75 ML IV (03:59)
--- NOTE | 2024-07-21 05:34 | PC.NURSE ---
Shift note ([id number]): Patient pleasant, alert and oriented. Independent in room. Denied pain. Per pt stools are now clear following bowel prep for scheduled colonoscopy today.?
[2024-07-21 06:14] LABS: Hematocrit 26.6 % (33.0-51.0); Hemoglobin* 8.4 gm/dL (12.0-16.0); Mean Corpuscular HGB Conc 32 gm/dL (32-36); Mean Corpuscular Hemoglobin 30 pg (26-34); Mean Corpuscular Volume 94 fL (80-100); Platelet Count* 295 K/uL (140-440); Red Blood Count 2.83 m/uL (4.00-5.20); Slide Review Reflex No; White Blood Count* 5.97 K/uL (4.50-11.00)
--- NOTE | 2024-07-21 09:01 | W.ANESCHARGE ---
Anesthesia Charges Start Date/Time Anesthesia Start Date: 07/21/24 Anesthesia Start Time: 09:13 Stop Date/Time Anesthesia Stop Date: 07/21/24 Anesthesia Stop Time: 09:41 Summary Extremes of Age - Over 70 or under 1: MDA Coding CPT Codes CPT Codes: ANES LWR INTST NDSC NOS - 76120 ([id number]) QK - PHOTOGRAPH FINISHER 2-4 CNCRNT ANES PROC, QX - OBIEE LEAD DEVELOPER SVC W/ MD MED DIRECTION, P3 - PATIENT W/SEVERE SYS DISEASE Additional Codes: Summary - Extremes of Age - Over 70 or under 1: MDA ([id number])
--- NOTE | 2024-07-21 09:49 | P.ANES_ITS ---
Anesthesia Charges Start Date/Time Anesthesia Start Date: 07/21/24 Anesthesia Start Time: 09:13 Stop Date/Time Anesthesia Stop Date: 07/21/24 Anesthesia Stop Time: 09:41 Summary Extremes of Age - Over 70 or under 1: FLAP CURER Coding CPT Codes CPT Codes: ANES LWR INTST NDSC NOS - 93374 ([id number]) P3 - PATIENT W/SEVERE SYS DISEASE, QK - CLAMP TRUCK DRIVER 2-4 CNCRNT ANES PROC, QX - FLAP CURER SVC W/ MD MED DIRECTION Additional Codes: Summary - Extremes of Age - Over 70 or under 1: FLAP CURER ([id number])
--- NOTE | 2024-07-21 09:49 | W.ANESCHARGE ---
Anesthesia Charges Start Date/Time Anesthesia Start Date: 07/21/24 Anesthesia Start Time: 09:13 Stop Date/Time Anesthesia Stop Date: 07/21/24 Anesthesia Stop Time: 09:41 Summary Extremes of Age - Over 70 or under 1: SENIOR SOFTWARE DEVELOPMENT MANAGER Coding CPT Codes CPT Codes: ANES LWR INTST NDSC NOS - 21631 ([id number]) P3 - PATIENT W/SEVERE SYS DISEASE, QK - UNIT CONTROLLER 2-4 CNCRNT ANES PROC, QX - SENIOR SOFTWARE DEVELOPMENT MANAGER SVC W/ MD MED DIRECTION Additional Codes: Summary - Extremes of Age - Over 70 or under 1: SENIOR SOFTWARE DEVELOPMENT MANAGER ([id number])
[2024-07-21] MEDS: LOSARTAN POTASSIUM 50 MG TABLET PO (10:30)
[2024-07-21] MEDS: OMEPRAZOLE 20 MG CAPSULE DR PO ×2 (10:38→20:21)
[2024-07-21] MEDS: SODIUM CHLORIDE 0.9 % (FLUSH) 10 ML SYRINGE 5 ML IVF ×2 (11:15→20:21)
--- NOTE | 2024-07-21 11:53 | PM.IMPN1 ---
Assessment and Plan Assessment and plan (1) Acute upper gastrointestinal bleeding: Problem comment: - presented with Melanotic stools and 5 g hemoglobin drop. Hemoglobin 11.1 -> 9.2 -> 9.1 -> 8.4 -> 8.7 - > 8.4 - EGD on 07/18 reassuring, as was colonoscopy on 07/21 - continues to have 1-2 dark small stools daily - anxious about returning home with symptoms - reviewed plan of care at length with patient and daughter Frances by phone on 07/21; plan to monitor Hgb and po intake for one more day post-procedure - appt has been scheduled with Dr. Apodaca at [facility] on 07/23 to discuss further workup (i.e. 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 - Nonemergent outpatient vascular consultation recommended Status: Acute (3) Microscopic colitis: Problem comment: - h/o this, diagnosed 2022 - Takes cholestyramine daily which she reports helping with her stools-being held Status: Acute (4) Type 2 diabetes mellitus, controlled: Problem comment: - Most recent A1c 6.2 - Metformin on hold Status: Acute (5) Hypertension: Problem comment: - continue losartan Status: Acute (6) Hyperlipidemia: Problem comment: - continue statin Status: Acute (7) Contamination of blood culture: Problem comment: - Blood culture 07/18 growing Gram-positive rods resembling bacillus. Send out culture results are negative. Received 2 doses IV vancomycin - Repeat blood culture on 07/19 NGTD, no further antibiotics warranted Status: Acute Plan - per above (follow Hgb, advance diet, likely d/c tomorrow with close GI f/u) Subjective Date Seen: 07/21/24 Interval history: Sangeeta was admitted to the hospital on 07/17 for melanotic diarrhea. Since admission: - Hgb has trended downward (11.1 -> 9s -> 8.4), persistent loose stools/melena - reassuring CT A/P - no acute bleeding noted on EGD 07/18, no acute bleeding abnormalities on colonoscopy 07/21 Sangeeta is nervous to restart her diet after her colonoscopy given melanotic diarrhea. She has seen Dr. Apodaca at [facility] in the past; we have been able to set up a virtual visit for her on 07/23. She is ambulating without dizziness or lightheadedness, has no concerns for hospitalist team this morning. Exam Narrative: Exam Narrative: GEN: Alert and oriented, laying comfortably in bed HEENT: EOMIs bilaterally, no scleral icterus CV: RRR, No concerning murmurs R: LCTA bilaterally without concerning wheezing Ab: Soft and nontender, mild distension, normoactive bowel sounds Ext: wwp, no concerning edema Skin: Bruising around IV site, no other concerning skin lesions or rashes on exposed skin Neuro: No focal deficits Psych: Mild anxiety surrounding symptoms, no agitation Const: Vital Signs, click to edit/add: Vital Signs - 24 hr 07/20/24 15:00 07/20/24 15:00 07/20/24 19:00 Temperature 97.3 F L 97.0 F L Pulse Rate [Left P ulse Oximeter] 79 79 81 Respiratory Rate 18 18 18 Blood Pressure [Ri ght Arm] 142/87 H 128/78 Pulse Oximetry 99 95 Oxygen Delivery Me thod Room Air Room Air 07/20/24 23:00 07/21/24 03:00 07/21/24 07:00 Temperature 97.6 F 96.9 F L Pulse Rate [Left P ulse Oximeter] 68 86 86 Respiratory Rate 18 18 18 Blood Pressure [Ri ght Arm] 148/85 H 120/88 Pulse Oximetry 93 96 Oxygen Delivery Me thod Room Air Room Air 07/21/24 07:00 07/21/24 10:20 07/21/24 11:00 Temperature 96.3 F L 96.8 F L 96.8 F L Pulse Rate [Left P ulse Oximeter] 79 66 66 Respiratory Rate 18 16 15 Blood Pressure [Ri ght Arm] 134/78 125/94 H 132/66 Pulse Oximetry 95 94 93 Oxygen Delivery Me thod Room Air Room Air Room Air Labs Labs: Laboratory Results - last 24 hr 07/21/24 05:50 WBC 5.97 RBC 2.83 L Hgb 8.4 L Hct 26.6 L MCV 94 MCH 30 MCHC 32 Plt Count 295
--- NOTE | 2024-07-21 14:11 | PC.NURSE ---
Patient remains inpatient to monitor S/P colonoscopy and HGB. Patient ambulates Independently. PIV Right forearm patent. Patient denies pain.
[2024-07-21] MEDS: ATORVASTATIN CALCIUM 10 MG TABLET PO (20:21)
[2024-07-22 03:00] VITALS: RESP 16
--- NOTE | 2024-07-22 05:53 | PC.NURSE ---
Pt slept during the night, ind in room. tolerated evening meal, no BM this shift. denies abd pain, chest pain or headache, still passing gas. denies feeling lightheaded or dizzy with ambulation.
[2024-07-22 06:55] LABS: Basophils Absolute Auto 0.05 K/uL (0.00-0.30); Basophils Percent Auto 0.8 % (0.0-3.0); Eosinophils Absolute Auto 0.23 K/uL (0.00-0.50); Eosinophils Percent Auto 3.9 % (0.0-7.0); Hematocrit 26.2 % (33.0-51.0); Hemoglobin* 8.3 gm/dL (12.0-16.0); Immature Granulocytes Abs Auto 0.04 K/uL (0.00-0.30); Immature Granulocytes Pct Auto 0.7 %; Lymphocytes Absolute Auto 1.48 K/uL (0.90-2.90); Lymphocytes Percent Auto 24.9 % (20-44); Mean Corpuscular HGB Conc 32 gm/dL (32-36); Mean Corpuscular Hemoglobin 30 pg (26-34); Mean Corpuscular Volume 93 fL (80-100); Monocytes Percent Auto 11.1 % (0.0-11.0); Neutrophils Absolute Auto 3.49 K/uL (1.7-7.0); Neutrophils Percent Auto 58.6 % (42.0-72.0); Platelet Count* 301 K/uL (140-440); RDW Coefficient of Variation % 14.4 % (11.5-15.5); Red Blood Count 2.81 m/uL (4.00-5.20); White Blood Count* 5.95 K/uL (4.50-11.00)
[2024-07-22 07:00] VITALS: BP 143/95; PULSE 72; RESP 14; TEMP 36.4; O2SAT 97
[2024-07-22 07:08] LABS: Chloride* 111 mmol/L (96-114); Potassium* 3.3 mmol/L (3.6-5.1); Sodium* 140 mmol/L (135-149)
[2024-07-22 07:10] LABS: Slide Review Reflex No
[2024-07-22 07:11] LABS: Anion Gap 2 mEq/L (7-15); Blood Urea Nitrogen* 10 mg/dL (7-30); Calcium* 9.1 mg/dL (8.4-10.6); Carbon Dioxide* 27 mmol/L (20-32); Creatinine* 0.7 mg/dL (0.5-1.5); Est. Creatinine Clearance* 36.16; Estimated Glomerular Filt Rate 85 ml/min; Glucose* 121 mg/dL (60-115)
[2024-07-22] MEDS: OMEPRAZOLE 20 MG CAPSULE DR PO (08:23)
[2024-07-22] MEDS: SODIUM CHLORIDE 0.9 % (FLUSH) 10 ML SYRINGE 5 ML IVF (08:24)
[2024-07-22] MEDS: LOSARTAN POTASSIUM 50 MG TABLET PO (08:24)
--- NOTE | 2024-07-22 10:02 | PM.DS1 ---
DS: Providers Provider Date Seen: 07/22/24 Date of admission: 07/18/24 23:27 Primary care physician: Gen Khanna MD Admitting Clinician: Tigre Olvera MD Attending Physician on discharge: Ally Dupont MD Date of Discharge: 07/22/24 DS: Diagnosis Discharge Diagnosis (1) Acute upper gastrointestinal bleeding: Status: Acute Problem details: - presented with Melanotic stools drop in Hemoglobin: 11.1 -> 9.2 -> 9.1 -> 8.4 -> 8.7 - > 8.4 -> 8.3 - EGD on 07/18 reassuring, as was colonoscopy on 07/21 - reviewed plan of care at length with patient and daughter Frances by phone on 07/21; given Hgb stability and normal po intake, plan for d/c 07/22 with GI f/u - appt has been scheduled with Dr. Apodaca at [facility] on 07/23 to discuss further workup (i.e. 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 Johnson in 2018, was due for f/u in 2023 (3) Microscopic colitis: Status: Acute Problem details: - h/o this, diagnosed 2022 - Takes cholestyramine daily for symptoms, no significant diarrhea during stay (4) Type 2 diabetes mellitus, controlled: Status: Acute Problem details: - Most recent A1c 6.2 - Metformin on hold, will f/u with PCP (5) Hypertension: Status: Acute Problem details: - continue losartan (6) Hyperlipidemia: Status: Acute Problem details: - continue statin (7) Contamination of blood culture: Status: Acute Problem details: - Blood culture 07/18 growing Gram-positive rods resembling bacillus. Send out culture results negative, received 2 doses IV vancomycin - No fevers or evidence of infection - Repeat blood culture on 07/19 NGTD, no further antibiotics warranted DS: Summary Hospital Course Hospital Course: Sangeeta was admitted to the hospital on 07/17 for melanotic diarrhea. During stay: - Hgb trended downward (11.1 -> 9s -> 8.4), remained stable between 8.3-8.7 for last 4 days - continued to have 1-2 melanotic stools/day - reassuring CT A/P - no acute bleeding noted on EGD 07/18, no acute bleeding abnormalities on colonoscopy 07/21 - able to tolerate regular diet without incident after colonoscopy 07/[address] Apodaca at [facility] in the past; we have been able to set up a virtual visit for her on 07/23 to review findings and discuss next steps in workup. Other notable findings with details above. Patient medically stable for d/c home with close GI f/u on 07/22/24. Status at Discharge Overall status at discharge: patient is progressing back to baseline Time Spent with Patient Time attestation: Total time spent providing and/or coordinating discharge services: Time spent: Greater than 30 minutes Exam Narrative: Exam Narrative: GEN: Alert and oriented, answering questions appropriately HEENT: EOMIs bilaterally, no scleral icterus CV: RRR, No concerning murmurs R: LCTA bilaterally Ab: Soft and nontender, normal bowel sounds Ext: wwp, no concerning edema Skin: No concerning skin lesions or rashes on exposed skin Neuro: Nonfocal Psych: Appropriate Const: Vital Signs, click to edit/add: Vital Signs - 24 hr 07/21/24 10:20 07/21/24 11:00 07/21/24 15:00 Temperature 96.8 F L 96.8 F L Pulse Rate [Left P ulse Oximeter] 66 66 91 Respiratory Rate 16 15 16 Blood Pressure [Ri ght Arm] 125/94 H 132/66 Pulse Oximetry 94 93 Oxygen Delivery Me thod Room Air Room Air 07/21/24 15:00 07/21/24 19:00 07/21/24 23:00 Temperature 97.6 F 97.0 F L 97.2 F L Pulse Rate [Left P ulse Oximeter] 91 100 80 Respiratory Rate 16 18 18 Blood Pressure [Ri ght Arm] 120/69 129/91 H 168/109 H Pulse Oximetry 94 97 100 Oxygen Delivery Me thod Room Air Room Air Room Air 07/22/24 03:00 07/22/24 07:00 07/22/24 07:00 Temperature 97.5 F L Pulse Rate [Left P ulse Oximeter] 72 72 Respiratory Rate 16 14 14 Blood Pressure [Ri ght Arm] 143/95 H Pulse Oximetry 97 Oxygen Delivery Me thod Room Air DS: Data Data Completed and Pending Labs on day of discharge: Labs from last 24 hours 07/22/24 06:24 WBC 5.95 RBC 2.81 L Hgb 8.3 L Hct 26.2 L MCV 93 MCH 30 MCHC 32 RDW Coeff of Olga 14.4 Plt Count 301 Neut % (Auto) 58.6 Lymph % (Auto) 24.9 [place] % (Auto) 11.1 H Eos % (Auto) 3.9 Baso % (Auto) 0.8 Neut # (Auto) 3.49 Lymph # (Auto) 1.48 [place] # (Auto) 0.70 Eos # (Auto) 0.23 Baso # (Auto) 0.05 Abs Immat Gran (auto) 0.04 Imm/Tot Granulo (auto) 0.7 Sodium 140 Potassium 3.3 L Chloride 111 Carbon Dioxide 27 Anion Gap 2 L BUN 10 Creatinine 0.7 Estimated Creat Clear 36.16 Estimated GFR 85 Glucose 121 H Calcium 9.1 Preliminary micro results at discharge 07/19/24 06:05 Blood Culture - Preliminary Blood NO GROWTH AFTER 72 HOURS 07/18/24 05:59 Blood Culture - Preliminary Blood Gram Pos Naeem resem Bacillus sp Discharge Plan Discharge Disposition: Home, Self-Care Date of Admission: 07/18/24 23:27 Attending Provider on Discharge: Ally Dupont Primary Care Provider: Gen Khanna Condition: Improved Anticipated Discharge Date/Time: 07/22/24 13:00 Discharge Medications: New omeprazole 20 mg Capsule,Delayed Release(Dr/Ec) 20 mg PO DAILY Qty: 30 0RF Continued melatonin 10 mg capsule 10 mg PO HS multivitamin [Multiple Vitamins] Tablet 1 tab PO QAM milk thistle seed extract 1 tab PO DAILY vitamin B complex Tablet 1 tab PO DAILY cholecalciferol (vitamin D3) 25 mcg (1,000 unit) capsule 25 mcg PO DAILY lutein 20 mg capsule 20 mg PO DAILY Rx Instructions: give with meal/snack [id number] [Tnnnaxfj-Vwffs-NPK(with boron)] 429-142-89-1 mg tablet 1 tab PO BID calcium carbonate [Tums] 200 mg calcium (500 mg) tablet,chewable 200 mg PO DAILY azelastine 137 mcg (0.1 %) spray,non-aerosol 2 spray intranasal BID Qty: 30 6RF fenofibrate micronized 134 mg capsule 134 mg PO DAILY Qty: 90 3RF losartan 50 mg tablet 50 mg PO DAILY Qty: 90 3RF Cholestyramine Light 4 gram powder 4 g PO BID atorvastatin 10 mg tablet 10 mg PO HS Held metformin 500 mg tablet extended release 24 hr 1,000 mg PO BID Qty: 360 3RF Hold Instructions: HOLD METFORMIN until you have a followup appointment with Dr. Khanna to discuss recent hospital stay Discontinued aspirin 81 mg tablet,delayed release (DR/EC) 81 mg PO DAILY No Action (DME) lancets [FreeStyle Lancets] 28 gauge misc See Rx Instructions .Route Qty: 100 0RF Rx Instructions: test daily (DME) blood-glucose meter [Contour Next Glucose Meter] Kit See Rx Instructions .Route Qty: 1 0RF Rx Instructions: Test daily (DME) blood sugar diagnostic Strip See Rx Instructions .Route Qty: 100 6RF Rx Instructions: Contour next test strips, Test daily (DME) lancets [Accu-Chek Softclix Lancets] Misc See Rx Instructions .Route Qty: 100 3RF Rx Instructions: As directed Discharge Orders: Discharge Order (Routine); Ordered 07/22/24 Ordered By: Ally Dupont Patient Education: Omeprazole (By mouth), Gastrointestinal Bleeding (DC) Additional Instructions: Medication changes: 1. START over the counter Prilosec once/day. 2. STOP aspirin 3. HOLD metformin since it can make diarrhea worse. You can take with Dr. Khanna about if/when/how to restart. APPOINTMENTS: 1. You have a virtual visit with Dr. Apodaca of [facility] tomorrow (07/23) at 11am. The office should have emailed YOU information and texted it to you and Frances (I'm not sure if the office was able to add Frances's email to your account). Their office number for any questions is [phone]. 2. You are due for f/u with Dr. Johnson for your history of AAA repair (there was a question of old clot noted on your CT that was done in the ER. Dr. Rockwell called and talked with the Vascular Surgeon venereal disease control head who recommends followup with Dr. Johnson in clinic for this). Please call Dr. Johnson's office for an appointment at [phone]. Activity Level: Activity as Tolerated Discharge Diet: Regular Follow Up Appointments: Sumit Apodaca MD [Referring] Referral Note: You have a VIRTUAL visit with Dr. Apodaca on Sunday, 07/23 at 11am. The appointment information should be emailed and texted to you (and hopefully Frances!) Gen Khanna MD [Primary Care Provider, Family Practice] - 07/29/24 9:45 am Referral Note: [facility] for follow-up. Forms: [email or web address] Info Instructions
[2024-07-22 10:13] VITALS: BP 140/90; PULSE 72; RESP 15; TEMP 36.4; O2SAT 99
== END 2024-07-22 14:00 | disposition home or self-care (01) | DRG 378 ==
LOC: ED 15:02 → MEDSURG 18:19
PROVIDERS: Family Medicine; Physician Assistant; Admitting Provider Family Medicine; Emergency Provider Emergency Medicine; PCP Family Medicine; Visit Provider Family Medicine
DX: K92.2 Gastrointestinal hemorrhage, unspecified (principal); I74.09 Other arterial embolism and thrombosis of abdominal aorta; T82.868A Thrombosis due to vascular prosthetic devices, implants and grafts, initial encounter; K52.839 Microscopic colitis, unspecified; E11.9 Type 2 diabetes mellitus without complications; Z79.84 Long term (current) use of oral hypoglycemic drugs; I10 Essential (primary) hypertension; E78.5 Hyperlipidemia, unspecified; K76.0 Fatty (change of) liver, not elsewhere classified; K21.9 Gastro-esophageal reflux disease without esophagitis; Z90.10 Acquired absence of unspecified breast and nipple; Z96.649 Presence of unspecified artificial hip joint; Z79.82 Long term (current) use of aspirin; Z85.3 Personal history of malignant neoplasm of breast; Z86.0101 Personal history of adenomatous and serrated colon polyps
CPT/HCPCS: 00731; 00811; 36415; 43235; 45385; 74174; 80048; 80076; 82270; 83605; 85018; 85025; 85027; 85610; 85730; 86140; 86850; 86900; 86901; 87040; 87077; 87800; 93005; 99100; 99284; 99285; A9270; G0378; J2405; J2470; J2704; J3372; J3490; J7030; J7120; Q9967

== ENCOUNTER 2025-01-06 12:10 | Outpatient (CLI) | payer MEDICARE, SELFPAY | END 2025-01-06 12:11 | disposition home or self-care (01) | PROVIDERS: PCP Family Medicine; Visit Provider Family Medicine | DX: E78.00 Pure hypercholesterolemia, unspecified (principal); E53.8 Deficiency of other specified B group vitamins | CPT/HCPCS: 80061; 82607 ==